=== PATIENT | female | born 1945 | race Caucasian/White ===

== ENCOUNTER 2016-06-11 16:50 | Emergency (ER) | payer MEDICARE, MEDICAID ==
[2016-06-11] MEDS ORDERED: cloNIDine 0.1 MG Tab PO ONE (17:14)
[2016-06-11 17:35] LABS: CHLORIDE,CL 95 mmol/L (98-107); SODIUM,NA 130 mmol/L (136-145)
--- NOTE | 2016-06-11 18:03 | EDM.PDOC ---
ED HPI GENERAL MEDICAL PROBLEM - General Chief Complaint: General Stated Complaint: Blurred vision, Dizziness Time Seen by Provider: 06/11/16 17:09 Source of Information: Reports: Patient History Limitations: Reports: No limitations - History of Present Illness INITIAL COMMENTS - FREE TEXT/NARRATIVE: Has had symptoms off and on for several weeks. was recently admitted in [place] for same symptoms. Had complete work up there. Is scheduled to see specialist for her hyponatremia. No chest pain. No neuro changes. Symptoms are improved after arrival to ER Duration: Week(s): Location: Reports: generalized Associated Symptoms: Reports: loss of appetite, weakness - Related Data Allergies Allergy/AdvReac Type Severity Reaction Status Date / Time morphine Allergy Hives Verified 06/11/16 16:53 niacin Allergy Flushed Verified 06/11/16 16:53 Home Meds: Home Meds Aspirin 81 mg PO DAILY 05/13/16 [History] LORazepam 0.5 mg PO BID PRN 05/13/16 [History] Levothyroxine 150 mcg PO ACBREAKFAST 05/13/16 [History] Losartan [Cozaar] 50 mg PO DAILY 05/13/16 [History] Meclizine [Antivert] 25 mg PO TID PRN 05/13/16 [History] Metoprolol Succinate 25 mg PO DAILY 05/13/16 [History] Phenytoin 100 mg PO TID 05/13/16 [History] Ranitidine [Zantac] 150 mg PO BIDAC 05/13/16 [History] amLODIPine Besylate [Amlodipine Besylate] 5 mg PO DAILY 05/13/16 [History] atorvaSTATin [Lipitor] 40 mg PO BEDTIME 05/13/16 [History] metFORMIN HCl [Metformin HCl ER] 500 mg PO QPM 05/13/16 [History] Albuterol [Proventil HFA] 1 - 2 inhalation PO Q4H PRN 05/23/16 [History] Vitamin B Complex 1 tab PO DAILY 05/23/16 [History] Calcium Carbonate/Vitamin D3 [Os-[place] 500-Vit D3 600 Caplet] 1 tab PO BID [History] Sodium Chloride 1 gm PO QID 06/05/16 [History] Past Medical History HEENT History: Reports: Cataract, Impaired vision Cardiovascular History: Reports: Afib, High cholesterol, Hypertension, Other ( see below) Other Cardiovascular History: Bundle Branch Block Respiratory History: Reports: None Gastrointestinal History: Reports: Diverticulosis, GERD Genitourinary History: Reports: None [employer] History: Reports: Musculoskeletal History: Reports: Arthritis, Back pain, chronic, Osteoporosis Neurological History: Reports: Seizure Psychiatric History: Reports: Anxiety Endocrine/Metabolic History: Reports: Diabetes, type II, Hypothyroidism, Obesity /BMI 30+, Osteoporosis, Vitamin D deficiency Dermatologic History: Reports: None - Infectious Disease History Infectious Disease History: Reports: Chicken pox, Measles, Mumps - Past Surgical History Head Surgeries/Procedures: Reports: None HEENT Surgical History: Reports: Cataract surgery Cardiovascular Surgical History: Reports: None GI Surgical History: Reports: Cholecystectomy, Other (see below) Other GI Surgeries/Procedures: rectoceal/cystoceal repair Female Surgical History: Reports: Other (see below) Other Female Surgeries/Procedures: Pre-cancerous lumpectomy right breast. Endocrine Surgical History: Reports: None Neurological Surgical History: Reports: None Musculoskeletal Surgical History: Reports: None Dermatological Surgical History: Reports: None Social & Family History - Family History Family Medical History: Noncontributory Cardiac: Reports: Heart failure, [place] Endocrine/Metabolic: Reports: Diabetes, type II - Tobacco Use Smoking Status *Q: Former Smoker Years of Tobacco use: 50 Packs/Tins Daily: 1 Used Tobacco, but Quit: Yes Month Tobacco Last Used: 1 Second Hand Smoke Exposure: No - Caffeine Use Caffeine Use: Reports: Coffee - Recreational Drug Use Recreational Drug Use: No ED ROS GENERAL - Review of Systems Review Of Systems: See Below Constitutional: Reports: weakness, fatigue ED EXAM, GENERAL - Physical Exam Exam: See Below Exam Limited By: No limitations General Appearance: alert, no apparent distress Ears: normal external exam Nose: normal inspection Throat/Mouth: Normal inspection Head: atraumatic Neck: supple Respiratory/Chest: lungs clear, normal breath sounds Cardiovascular: regular rate, rhythm Back Exam: normal inspection Extremities: normal inspection Neurological: alert, oriented, normal cognition, normal gait, no motor/sensory deficits Psychiatric: normal affect, normal mood Course - Vital Signs Last Recorded V/S: Last Vital Signs Temp 36.2 C 06/11/16 16:54 Pulse 64 06/11/16 16:54 Resp 20 06/11/16 16:54 BP 165/70 H 06/11/16 17:17 Pulse Ox 99 06/11/16 16:54 - Orders/Labs/Meds Orders: Active Orders 24 hr Category Date Time Status EKG Documentation Completion [RC] ASDIRECTED Care 06/11/16 17:14 Active Labs: Laboratory Tests 06/11/16 06/11/16 Range/Units 17:15 17:15 WBC 8.4 (4.0-10.2) K/uL RBC 4.19 (3.77-5.09) M/uL Hgb 13.1 (11.7-15.5) g/dL Hct 37.4 (34.0-46.0) % MCV 89.3 (84.0-98.0) fL MCH 31.3 (28.2-33.3) pg MCHC 35.0 (31.7-36.0) g/dL RDW 12.9 (11.2-14.1) % Plt Count 205 (150-350) K/uL Neut % (Auto) 60.9 (45.0-80.0) % Lymph % (Auto) 26.4 (10.0-50.0) % Titus % (Auto) 11.0 (2.0-14.0) % Eos % (Auto) 1.3 (0.0-5.0) % Baso % (Auto) 0.4 (0.0-2.0) % Neut # (Auto) 5.09 (1.40-7.00) K/uL Lymph # (Auto) 2.21 (0.50-3.50) K/uL Titus # (Auto) 0.92 (0.00-1.00) K/uL Eos # (Auto) 0.11 (0.00-0.50) K/uL Baso # (Auto) 0.03 (0.00-0.20) K/uL Sodium 130 L (136-145) mmol/L Potassium 4.2 (3.5-5.1) mmol/L Chloride 95 L (98-107) mmol/L Carbon Dioxide 27.6 (21.0-32.0) mmol/L BUN 7 (7-18) mg/dL Creatinine 0.70 (0.51-1.17) mg/dL Est Cr Clr Drug Dosing 60.09 mL/min Estimated GFR (MDRD) > 60 mL/min Glucose 130 H (74-106) mg/dL Calcium 8.8 (8.5-10.1) mg/dL Total Bilirubin 0.4 (0.2-1.0) mg/dL AST 28 (15-37) U/L ALT 56 (12-78) U/L Alkaline Phosphatase 97 (46-116) IU/L Total Protein 7.2 (6.4-8.2) g/dL Albumin 3.6 (3.4-5.0) g/dL Meds: Medications Discontinued Medications Generic Name Dose Route Start Last Admin Trade Name Freq PRN Reason Stop Dose Admin Clonidine HCl 0.1 mg 06/11/16 17:14 06/11/16 17:17 Catapres PO 06/11/16 17:15 0.1 mg ONETIME ONE Administration - Re-Assessments/Exams Free Text/Narrative Re-Assessment/Exam: 06/11/16 18:02 Pt stable in ER BP improved with clonidine Departure - Departure Time of Disposition: 18:00 Disposition: Home, Self-Care 01 Condition: good Clinical Impression: Hyponatremia Forms: ED Department Discharge - My Orders Last 24 Hours: My Active Orders 06/11/16 17:14 EKG Documentation Completion [RC] ASDIRECTED - Assessment/Plan Last 24 Hours: My Active Orders 06/11/16 17:14 EKG Documentation Completion [RC] ASDIRECTED
[2016-06-11 18:31] VITALS: BP 154/60
== END 2016-06-11 18:15 | disposition home or self-care (01) ==
LOC: LL.ED 16:50
DX: E87.1 Hypo-osmolality and hyponatremia (principal); I48.91 Unspecified atrial fibrillation; E78.00 Pure hypercholesterolemia, unspecified; I10 Essential (primary) hypertension; K21.9 Gastro-esophageal reflux disease without esophagitis; Z87.891 Personal history of nicotine dependence; F41.9 Anxiety disorder, unspecified; E11.9 Type 2 diabetes mellitus without complications; E03.9 Hypothyroidism, unspecified; Z88.5 Allergy status to narcotic agent; Z88.8 Allergy status to other drugs, medicaments and biological substances; Z79.82 Long term (current) use of aspirin; Z79.899 Other long term (current) drug therapy
CPT/HCPCS: 36415; 80053; 85025; 93005; 99283; 99284; A9270

== ENCOUNTER 2017-07-11 19:30 | Emergency (ER) | payer MEDICARE, MEDICAID ==
[2017-07-11] MEDS ORDERED: Famotidine 20 MG/2 ML SDV IVPUSH ONE (19:39)
[2017-07-11] MEDS ORDERED: Pantoprazole 40 MG Vial IVPUSH ONE (19:39)
[2017-07-11] MEDS ORDERED: Sodium Chloride 0.9% 10 ML Syringe FLUSH PRN (19:39)
--- NOTE | 2017-07-11 19:39 | EDM.PDOC ---
ED HPI GENERAL MEDICAL PROBLEM - General Chief Complaint: General Stated Complaint: abdominal pain x 2 days Time Seen by Provider: 07/11/17 19:30 Source of Information: Reports: Patient, Old Records ([facility] chart/EMR) History Limitations: Reports: No Limitations - History of Present Illness INITIAL COMMENTS - FREE TEXT/NARRATIVE: Patient was brought to the emergency room via private automobile by her son for evaluation of occasional intermittent nonspecific diffuse abdominal cramping, which has been present for the last few days, with large normal bowel movement this morning, however only a small bowel movement about one hour prior to arrival. She also some problems with some nonspecific persistent intermittent vertigo and generalized weakness during the last few days, which is chronic in nature. No recent history of heartburn, nausea, diarrhea, melena, gross hematochezia, or any food intolerance, including fatty foods, etc.. She denies any gross hematuria, colic, or other UTI symptoms. The patient denies any chest pain/pressure, heart flutter, orthostasis, orthopnea, diaphoresis, paresthesias , recent decreased exercise tolerance, or any other anginal-type symptoms. The patient also denies any recent fever, cough, wheezing, dyspnea, etc.. No history of recent headaches, visual changes, diplopia, change in mental status, or other change in neurological status. Onset: Gradual Duration: Week(s): (About one week), Intermittent Location: Reports: Abdomen. Denies: Head, Face, Neck, Chest, Back, Upper Extremity, Left, Upper Extremity, Right, Generalized, Radiates to Quality: Reports: Ache, Same as Previous Episode, Other (Cramping) Severity: Moderate Improves with: Reports: None Worsens with: Reports: None Context: Reports: Other (As above) Associated Symptoms: Reports: Weakness (Stable chronic). Denies: Chest Pain, Cough, Diaphoresis, Fever/Chills, Headaches, Loss of Appetite, Malaise, Nausea/ Vomiting, Rash, Shortness of Breath, Syncope Treatments ENGINEERING TECHNICIAN: Reports: Other (see below) (None) Abdominal Pain Score (Numeric/FACES): 7 - Related Data Allergies Allergy/AdvReac Type Severity Reaction Status Date / Time morphine Allergy Hives Verified 07/11/17 19:31 niacin Allergy Flushed Verified 07/11/17 19:31 Home Meds: Home Meds Aspirin 81 mg PO DAILY 05/13/16 [History] LORazepam 0.5 mg PO BID PRN 05/13/16 [History] Levothyroxine 150 mcg PO ACBREAKFAST 05/13/16 [History] Meclizine [Antivert] 25 mg PO TID PRN 05/13/16 [History] Metoprolol Succinate 25 mg PO DAILY 05/13/16 [History] Phenytoin 100 mg PO TID 05/13/16 [History] Ranitidine [Zantac] 150 mg PO BIDAC 05/13/16 [History] amLODIPine Besylate [Amlodipine Besylate] 5 mg PO DAILY 05/13/16 [History] atorvaSTATin [Lipitor] 40 mg PO BEDTIME 05/13/16 [History] metFORMIN HCl [Metformin HCl ER] 500 mg PO QPM 05/13/16 [History] Vitamin B Complex 1 tab PO DAILY 05/23/16 [History] Sodium Chloride 1 gm PO QID 06/05/16 [History] Past Medical History HEENT History: Reports: Cataract, Impaired Vision, Other (See Below) Other HEENT History: Patient wears glasses Cardiovascular History: Reports: Afib, Arrhythmia, Cardiomyopathy, Heart Failure , High Cholesterol, Hypertension, Other (See Below) Other Cardiovascular History: Left bundle branch block/bifascicular bundle- branch block Respiratory History: Reports: Other (See Below) Other Respiratory History: Benign pulmonary nodule Gastrointestinal History: Reports: Diverticulosis, GERD Genitourinary History: Reports: None PLUMBER'S ASSISTANT History: Reports: Musculoskeletal History: Reports: Arthritis, Back Pain, Chronic, Neck Pain, Chronic, Osteoporosis Neurological History: Reports: Seizure, Vertigo, Other (See Below) Other Neuro History: Chronic vertigo Psychiatric History: Reports: Anxiety, Depression Endocrine/Metabolic History: Reports: Diabetes, Type II, Hypothyroidism, Obesity /BMI 30+, Osteoporosis, Vitamin D Deficiency, Other (See Below) Other Endocrine/Metabolic History: Chronic hyponatremia secondary to CHF Dermatologic History: Reports: None - Infectious Disease History Infectious Disease History: Reports: Chicken Pox, Measles, Mumps - Past Surgical History HEENT Surgical History: Reports: Cataract Surgery GI Surgical History: Reports: Cholecystectomy Female Surgical History: Reports: Other (See Below) Other Female Surgeries/Procedures: A&P repair Oncologic Surgical History: Reports: Lumpectomy, Other (See Below) Other Oncologic Surgeries/Procedures: Right Breast lumpectomy secondary to precancerous lesion - Past Imaging History Past Imaging History: Reports: CAT Scan (CT of the head on 06/05/16) Social & Family History - Family History Cardiac: Reports: CAD, Heart Failure, CO, Other (See Below) Other Cardiac Family History: Father with CHF and CO Respiratory: Reports: COPD, Other (See Below) Other Respiratory Family Hisory: Father with COPD Endocrine/Metabolic: Reports: Diabetes, type II, Other (See Below) Other Endocrine/Metabolic Family History: Mother, maternal aunt, and sister with diabetes mellitus. Oncologic: Reports: Skin Other Oncologic Family History: Maternal aunt with unknown type of skin cancer. - Tobacco Use Smoking Status *Q: Never Smoker Tobacco Use Within Last Twelve Months: No Used Tobacco, but Quit: No Smoking Cessation Information Provided To Patient: No - Caffeine Use Caffeine Use: Reports: Coffee ED ROS GENERAL - Review of Systems Review Of Systems: ROS reveals no pertinent complaints other than HPI. ED EXAM, GENERAL - Physical Exam Exam: See Below Exam Limited By: No Limitations General Appearance: Alert, WD/WN, No Apparent Distress, Anxious (Mild) Eye Exam: Bilateral Eye: EOMI, Normal Inspection (Patient wearing glasses, no nystagmus), PERRL Ears: Normal External Exam, Normal Canal, Hearing Grossly Normal, Normal TMs Nose: Normal Inspection, Normal Mucosa, No Blood Throat/Mouth: Normal Inspection, Normal Lips, Normal Teeth (Multiple missing teeth), Normal Gums, Normal Oropharynx, Normal Voice, No Airway Compromise. No : Dysphagia, Perioral Cyanosis Head: Atraumatic, Normocephalic. No: Facial Swelling, Sinus Tenderness Neck: Supple, Non-Tender, Full Range of Motion, Carotid Bruit (Bilateral carotid bruitsmild). No: Lymphadenopathy (L), Lymphadenopathy (R), Thyromegaly Respiratory/Chest: No Respiratory Distress, No Accessory Muscle Use, Rales ( Mild bilateral basilar rales). No: Rhonchi, Wheezing, Pleural Rub, Retractions Cardiovascular: Normal Peripheral Pulses, Regular Rate, Rhythm, No Edema, No Gallop, No JVD, No Murmur, No Rub. No: Gallop/S3, Gallop/S4, Friction Rub Peripheral Pulses: 2+: Radial (L), Radial (R) GI/Abdominal: Normal Bowel Sounds, Soft, Non-Tender, No Organomegaly, No Distention, No Abnormal Bruit, No Mass, Pelvis Stable, Other (Obese). No: Guarding (Female) Exam: Deferred Rectal (Female) Exam: Deferred Back Exam: Normal Inspection, Full Range of Motion. No: CVA Tenderness (L), CVA Tenderness (R), Muscle Spasm Extremities: Normal Inspection, Normal Range of Motion, Non-Tender, No Pedal Edema, Normal Capillary Refill. No: Britton's Sign Neurological: Alert, Oriented, CN II-XII Intact, Normal Cognition, Normal Gait, No Motor/Sensory Deficits Psychiatric: Normal Affect, Normal Mood Skin Exam: Warm, Dry, Intact, Normal Color, No Rash. No: Diaphoretic, Ecchymosis, Wound/Incision Lymphatic: No Adenopathy Course - Vital Signs Last Recorded V/S: Last Vital Signs Temp 36.6 C 07/11/17 19:45 Pulse 65 07/11/17 21:00 Resp 14 07/11/17 21:00 BP 168/56 H 07/11/17 21:00 Pulse Ox 95 07/11/17 21:00 Vital Signs - 24 hr 07/11/17 07/11/17 07/11/17 19:45 20:00 20:30 Temperature [ 36.6 C Oral] Pulse, 65 64 65 Peripheral [ Pulse Oximetry] Respiratory 14 16 16 Rate Blood Pressure 171/76 H 166/68 H 157/56 H [Left Upper Arm ] O2 Sat by Pulse 95 94 L 95 Oximetry 07/11/17 21:00 Temperature [ Oral] Pulse, 65 Peripheral [ Pulse Oximetry] Respiratory 14 Rate Blood Pressure 168/56 H [Left Upper Arm ] O2 Sat by Pulse 95 Oximetry - Orders/Labs/Meds Orders: Active Orders 24 hr Category Date Time Status Peripheral IV Care [RC] . DIRECTED Care 07/11/17 19:39 Active Nothing Per Oral Diet [DIET] Diet 07/11/17 Breakfast Active Abdomen Series w Chest 1V [CR] Stat Exams 07/11/17 19:39 Taken CULTURE URINE [RM] Stat Lab 07/11/17 20:00 Received UA W/MICROSCOPIC [URIN] Stat Lab 07/11/17 20:00 Ordered Sodium Chloride 0.9% [Saline Flush] Med 07/11/17 19:39 Active 10 ml FLUSH ASDIRECTED PRN Obtain Past Medical Record [OM.PC] Urgent Oth 07/11/17 19:39 Active Peripheral IV Insertion Adult [OM.PC] Stat Oth 07/11/17 19:39 Ordered Resuscitation Status Stat Resus Stat 07/11/17 19:39 Ordered Medication Orders Sodium Chloride (Saline Flush) 10 ml FLUSH ASDIRECTED PRN PRN Reason: Keep Vein Open Last Admin: 07/11/17 20:17 Dose: 10 ml Labs: Laboratory Tests 07/11/17 07/11/17 07/11/17 Range/Units 19:42 19:42 19:42 WBC 9.7 (4.0-10.2) K/uL RBC 4.37 (3.77-5.09) M/uL Hgb 14.0 (11.7-15.5) g/dL Hct 39.3 (34.0-46.0) % MCV 89.9 (84.0-98.0) fL MCH 32.0 (28.2-33.3) pg MCHC 35.6 (31.7-36.0) g/dL RDW 12.3 (11.2-14.1) % Plt Count 197 (150-350) K/uL Neut % (Auto) 61.8 (45.0-80.0) % Lymph % (Auto) 26.4 (10.0-50.0) % Bill[place] % (Auto) 9.8 (2.0-14.0) % Eos % (Auto) 1.5 (0.0-5.0) % Baso % (Auto) 0.5 (0.0-2.0) % Neut # (Auto) 5.99 (1.40-7.00) K/uL Lymph # (Auto) 2.56 (0.50-3.50) K/uL Bill[place] # (Auto) 0.95 (0.00-1.00) K/uL Eos # (Auto) 0.15 (0.00-0.50) K/uL Baso # (Auto) 0.05 (0.00-0.20) K/uL PT 10.1 (9.8-11.7) SEC INR 0.9 APTT 22.6 (22.1-29.8) SEC Sodium (136-145) mmol/L Potassium (3.5-5.1) mmol/L Chloride (98-107) mmol/L Carbon Dioxide (21.0-32.0) mmol/L BUN (7-18) mg/dL Creatinine (0.51-1.17) mg/dL Est Cr Clr Drug Dosing mL/min Estimated GFR (MDRD) mL/min Glucose (74-106) mg/dL Lactic Acid (0.4-2.0) mmol/L Uric Acid (2.6-7.2) mg/dL Calcium (8.5-10.1) mg/dL Magnesium (1.8-2.4) mg/dL Total Bilirubin (0.2-1.0) mg/dL AST (15-37) U/L ALT (12-78) U/L Alkaline Phosphatase (46-116) IU/L Total Protein (6.4-8.2) g/dL Albumin (3.4-5.0) g/dL Amylase 89 (25-115) U/L Lipase (73-393) U/L Specimen Type Urine Color Urine Appearance Urine pH (5.0-9.0) Ur Specific [place] (1.005-1.030) Urine Protein (NEGATIVE) mg/dL Urine Glucose (UA) (NEGATIVE) mg/dL Urine Ketones (NEGATIVE) mg/dL Urine Occult Blood (NEGATIVE) Urine Nitrite (NEGATIVE) Urine Bilirubin (NEGATIVE) Urine Urobilinogen (0.2-1.0) E.U./dL Ur Leukocyte Esterase (NEGATIVE) Urine RBC /HPF Urine WBC /HPF Ur Epithelial Cells /LPF Urine Bacteria (NONE TO FEW) /HPF 07/11/17 07/11/17 07/11/17 Range/Units 19:42 19:42 20:00 WBC (4.0-10.2) K/uL RBC (3.77-5.09) M/uL Hgb (11.7-15.5) g/dL Hct (34.0-46.0) % MCV (84.0-98.0) fL MCH (28.2-33.3) pg MCHC (31.7-36.0) g/dL RDW (11.2-14.1) % Plt Count (150-350) K/uL Neut % (Auto) (45.0-80.0) % Lymph % (Auto) (10.0-50.0) % Bill[place] % (Auto) (2.0-14.0) % Eos % (Auto) (0.0-5.0) % Baso % (Auto) (0.0-2.0) % Neut # (Auto) (1.40-7.00) K/uL Lymph # (Auto) (0.50-3.50) K/uL Billings # (Auto) (0.00-1.00) K/uL Eos # (Auto) (0.00-0.50) K/uL Baso # (Auto) (0.00-0.20) K/uL PT (9.8-11.7) SEC INR APTT (22.1-29.8) SEC Sodium 128 L (136-145) mmol/L Potassium 3.9 (3.5-5.1) mmol/L Chloride 94 L (98-107) mmol/L Carbon Dioxide 26.8 (21.0-32.0) mmol/L BUN 15 (7-18) mg/dL Creatinine 0.89 (0.51-1.17) mg/dL Est Cr Clr Drug Dosing 44.52 mL/min Estimated GFR (MDRD) > 60 mL/min Glucose 123 H (74-106) mg/dL Lactic Acid 1.0 (0.4-2.0) mmol/L Uric Acid 2.7 (2.6-7.2) mg/dL Calcium 9.2 (8.5-10.1) mg/dL Magnesium 2.0 (1.8-2.4) mg/dL Total Bilirubin 0.2 (0.2-1.0) mg/dL AST 27 (15-37) U/L ALT 53 (12-78) U/L Alkaline Phosphatase 132 H (46-116) IU/L Total Protein 8.0 (6.4-8.2) g/dL Albumin 3.8 (3.4-5.0) g/dL Amylase (25-115) U/L Lipase 148 (73-393) U/L Specimen Type Urinvoid Urine Color Light yellow Urine Appearance Clear Urine pH 7.0 (5.0-9.0) Ur Specific [place] 1.015 (1.005-1.030) Urine Protein Negative (NEGATIVE) mg/dL Urine Glucose (UA) Negative (NEGATIVE) mg/dL Urine Ketones Negative (NEGATIVE) mg/dL Urine Occult Blood Negative (NEGATIVE) Urine Nitrite Negative (NEGATIVE) Urine Bilirubin Negative (NEGATIVE) Urine Urobilinogen 0.2 (0.2-1.0) E.U./dL Ur Leukocyte Esterase Negative (NEGATIVE) Urine RBC Not seen /HPF Urine WBC 0-5 /HPF Ur Epithelial Cells Few /LPF Urine Bacteria Few (NONE TO FEW) /HPF Urine specimen set up for culture and sensitivity Meds: Medications Generic Name Dose Route Start Last Admin Trade Name Freq PRN Reason Stop Dose Admin Sodium Chloride 10 ml 07/11/17 19:39 07/11/17 20:17 Saline Flush FLUSH 10 ml ASDIRECTED PRN Administration Keep Vein Open Discontinued Medications Generic Name Dose Route Start Last Admin Trade Name Freq PRN Reason Stop Dose Admin Famotidine 40 mg 07/11/17 19:39 07/11/17 20:16 Pepcid IVPUSH 07/11/17 19:40 40 mg ONETIME ONE Administration Famotidine Confirm 07/11/17 20:16 07/11/17 20:24 Pepcid Administered 07/11/17 20:17 Not Given Dose 20 mg .ROUTE .STK-MED ONE Pantoprazole Sodium 40 mg 07/11/17 19:39 07/11/17 20:16 Protonix Iv IVPUSH 07/11/17 19:40 40 mg ONETIME ONE Administration - Radiology Interpretation Free Text/Narrative:: Acute abdominal x-rays shows evidence of moderate aortic valve calcification and COPD with status post cholecystectomy, moderate stool, and moderate osteoarthritic changes present. No free air, fluid levels, ileus, obstruction, pulmonary infiltrates, or CHF present Departure - Departure Time of Disposition: 21:55 Disposition: Home, Self-Care 01 Condition: Good Clinical Impression: CHF, Congestive heart failure, Hyponatremia, Vertigo, Peptic reflux disease, Hypothyroidism (acquired), Mixed anxiety depressive disorder, Abdominal pain Hypertension Qualifiers: Hypertension type: essential hypertension Qualified Code(s): I10 - Essential ( primary) hypertension Osteoarthritis Qualifiers: Osteoarthritis location: multiple joints Osteoarthritis type: primary Qualified Code(s): M15.0 - Primary generalized (osteo)arthritis Hyperlipidemia Qualifiers: Hyperlipidemia type: unspecified Qualified Code(s): E78.5 - Hyperlipidemia, unspecified Diabetes mellitus Qualifiers: Diabetes mellitus type: type 2 Diabetes mellitus terminal gauger supervisor insulin use: without jail use Diabetes mellitus complication status: without complication Qualified Code(s): E11.9 - Type 2 diabetes mellitus without complications - Discharge Information Instructions: Pantoprazole injection, Abdominal Pain, Adult, [id number], Famotidine injection Forms: ED Department Discharge Additional Instructions: 1. Follow up with your regular provider in 7-10 days for reevaluation, including repeat blood pressure check. 2. Tylenol 650 mg by mouth every 4 hours when necessary as directed. 3. [place] diet including encouragement of oral fluids in moderation such as sports drinks, etc. for 24-48 hours as directed. Advance to heart healthy, diverticulosis, diabetic diet as tolerated thereafter. Continue 1500 mL per day fluid restriction. 4. Immediately after this visit verify that your cellular telephone's voicemail has been activated and is empty. Also verify that your home telephone 's answering machine is operating properly and has space to receive messages. Note that it is sometimes necessary for us to be able to contact you at a later date to discuss your medical care. - Problem List & Annotations (1) Abdominal pain SNOMED Code(s): 95549927 Code(s): R10.9 - UNSPECIFIED ABDOMINAL PAIN Status: Acute Priority: High Onset Date: ~07/04/17 Annotation/Comment:: Nonspecific abdominal pain possibly secondary to intermittent constipation. Observe for now. [place] diet initially with continuation of previous diet before, including fluid restriction secondary to her CHF. Qualifiers: Abdominal location: generalized Qualified Code(s): R10.84 - Generalized abdominal pain (2) CHF, Congestive heart failure SNOMED Code(s): 26736249 Code(s): I50.9 - HEART FAILURE, UNSPECIFIED Status: Chronic Priority: Medium Annotation/Comment:: No chest pain or anginal type symptoms (3) Hyponatremia SNOMED Code(s): 09631758 Code(s): E87.1 - HYPO-OSMOLALITY AND HYPONATREMIA Status: Chronic Priority: Medium Annotation/Comment:: Stable chronic in nature secondary to her CHF as above (4) Weakness generalized SNOMED Code(s): 65043241 Code(s): R53.1 - WEAKNESS Status: Chronic Priority: Medium Annotation/ Comment:: Stable by today's exam continue to observe closely (5) Hypertension SNOMED Code(s): 45675708 Code(s): I10 - ESSENTIAL (PRIMARY) HYPERTENSION Status: Acute Priority: High Annotation/Comment:: Blood pressures under somewhat moderate control. Continue to observe closely by her regular provider Qualifiers: Hypertension type: essential hypertension Qualified Code(s): I10 - Essential (primary) hypertension (6) Osteoarthritis SNOMED Code(s): 165784699 Code(s): M19.90 - UNSPECIFIED OSTEOARTHRITIS, UNSPECIFIED SITE Status: Chronic Priority: Medium Annotation/Comment:: Stable by history Qualifiers: Osteoarthritis location: multiple joints Osteoarthritis type: primary Qualified Code(s): M15.0 - Primary generalized (osteo)arthritis (7) Vertigo SNOMED Code(s): 320505508 Code(s): R42 - DIZZINESS AND GIDDINESS Status: Chronic Priority: Medium Annotation/Comment:: Relatively stable by today's clinical exam although intermittent exacerbation during the last week as above. Continue to observe for now. Continue current medical therapy (8) Peptic reflux disease SNOMED Code(s): 181991913 Code(s): K21.9 - GASTRO-ESOPHAGEAL REFLUX DISEASE WITHOUT ESOPHAGITIS Status: Chronic Priority: Medium Annotation/Comment:: Stable by history with high-dose IV Protonix and IV Pepcid given in the emergency room. Continue to observe for now (9) Hypothyroidism (acquired) SNOMED Code(s): 189946567 Code(s): E03.9 - HYPOTHYROIDISM, UNSPECIFIED Status: Chronic Priority: Medium Annotation/Comment:: Currently under therapy (10) Diabetes mellitus SNOMED Code(s): 14571432 Code(s): E11.9 - TYPE 2 DIABETES MELLITUS WITHOUT COMPLICATIONS Status: Chronic Priority: Medium Annotation/Comment:: Stable by history Qualifiers: Diabetes mellitus type: type 2 Diabetes mellitus terminal gauger supervisor insulin use: without jail use Diabetes mellitus complication status: without complication Qualified Code(s): E11.9 - Type 2 diabetes mellitus without complications (11) Hyperlipidemia SNOMED Code(s): 85385254 Code(s): E78.5 - HYPERLIPIDEMIA, UNSPECIFIED Status: Chronic Priority: Medium Annotation/Comment:: Currently under therapy Qualifiers: Hyperlipidemia type: unspecified Qualified Code(s): E78.5 - Hyperlipidemia , unspecified (12) Mixed anxiety depressive disorder SNOMED Code(s): 863092921 Code(s): F41.8 - OTHER SPECIFIED ANXIETY DISORDERS Status: Chronic Priority: Medium Annotation/Comment:: Relatively stable today. Continue to observe closely. - Problem List Review Problem List Initiated/Reviewed/Updated: Yes - My Orders Last 24 Hours: My Active Orders 07/11/17 19:39 Peripheral IV Care [RC] . DIRECTED Abdomen Series w Chest 1V [CR] Stat Sodium Chloride 0.9% [Saline Flush] 10 ml FLUSH ASDIRECTED PRN Obtain Past Medical Record [OM.PC] Urgent Peripheral IV Insertion Adult [OM.PC] Stat Resuscitation Status Stat 07/11/17 20:00 CULTURE URINE [RM] Stat UA W/MICROSCOPIC [URIN] Stat 07/11/17 Breakfast Nothing Per Oral Diet [DIET] - Assessment/Plan Last 24 Hours: My Active Orders 07/11/17 19:39 Peripheral IV Care [RC] . DIRECTED Abdomen Series w Chest 1V [CR] Stat Sodium Chloride 0.9% [Saline Flush] 10 ml FLUSH ASDIRECTED PRN Obtain Past Medical Record [OM.PC] Urgent Peripheral IV Insertion Adult [OM.PC] Stat Resuscitation Status Stat 07/11/17 20:00 CULTURE URINE [RM] Stat UA W/MICROSCOPIC [URIN] Stat 07/11/17 Breakfast Nothing Per Oral Diet [DIET] Assessment:: As above Plan: As above. Extensive precautions were given to the patient, who is in agreement with the treatment plan. See Patient Instructions for further treatment and plan.
[2017-07-11 20:03] LABS: CHLORIDE,CL 94 mmol/L (98-107); SODIUM,NA 128 mmol/L (136-145)
[2017-07-11] MEDS ORDERED: Famotidine 20 MG/2 ML SDV ONE (20:16)
[2017-07-12 00:14] VITALS: BP 132/61
== END 2017-07-11 21:52 | disposition home or self-care (01) ==
LOC: LL.ED 19:30
DX: K21.9 Gastro-esophageal reflux disease without esophagitis (principal); I11.0 Hypertensive heart disease with heart failure; I50.9 Heart failure, unspecified; E11.9 Type 2 diabetes mellitus without complications; E66.9 Obesity, unspecified; E87.1 Hypo-osmolality and hyponatremia; E03.9 Hypothyroidism, unspecified; F41.8 Other specified anxiety disorders; M15.0 Primary generalized (osteo)arthritis; E78.5 Hyperlipidemia, unspecified; Z88.5 Allergy status to narcotic agent; Z79.82 Long term (current) use of aspirin; Z79.899 Other long term (current) drug therapy; Z79.84 Long term (current) use of oral hypoglycemic drugs
CPT/HCPCS: 36415; 74022; 80053; 81001; 82150; 83605; 83690; 83735; 84550; 85025; 85610; 85730; 87086; 96374; 96375; 99284; C9113; J7050; S0028

== ENCOUNTER 2019-03-24 08:46 | Emergency (ER) | payer MEDICARE, MEDICAID ==
[2019-03-24 09:26] VITALS: BP 134/58; PULSE 70
[2019-03-24 09:45] LABS: CHLORIDE,CL 91 mmol/L (98-107); SODIUM,NA 126 mmol/L (136-145)
[2019-03-24] MEDS ORDERED: Sodium Chloride 0.9% 1,000 ML IV ONE (09:57)
--- NOTE | 2019-03-24 10:22 | EDM.PDOC ---
ED HPI GENERAL MEDICAL PROBLEM - General Chief Complaint: General Stated Complaint: dizzy, nausea, leg cramps Time Seen by Provider: 03/24/19 09:18 Source of Information: Reports: Patient History Limitations: Reports: No Limitations - History of Present Illness INITIAL COMMENTS - FREE TEXT/NARRATIVE: Pt with hx/o hyponatremia and felt similar symptoms today [place] ok yesterday Noticed dizziness, muscles cramps and weakness. Pt on salt replacement and water restriction for hyponatremia Onset: Gradual Duration: Day(s): Location: Reports: Generalized Severity: Moderate Worsens with: Reports: Movement - Related Data Allergies Allergy/AdvReac Type Severity Reaction Status Date / Time morphine Allergy Hives Verified 07/11/17 19:31 niacin Allergy Flushed Verified 07/11/17 19:31 Home Meds: Home Meds Aspirin 81 mg PO DAILY 05/13/16 [History] LORazepam 0.5 mg PO BID PRN 05/13/16 [History] Levothyroxine 150 mcg PO ACBREAKFAST 05/13/16 [History] Meclizine [Antivert] 25 mg PO TID PRN 05/13/16 [History] Metoprolol Succinate 25 mg PO DAILY 05/13/16 [History] Phenytoin 100 mg PO TID 05/13/16 [History] amLODIPine Besylate [Amlodipine Besylate] 5 mg PO DAILY 05/13/16 [History] atorvaSTATin [Lipitor] 40 mg PO BEDTIME 05/13/16 [History] metFORMIN HCl [Metformin HCl ER] 500 mg PO QPM 05/13/16 [History] Vitamin B Complex 1 tab PO DAILY 05/23/16 [History] Sodium Chloride 1 gm PO QID 06/05/16 [History] Calcium Carbonate/Vitamin D3 [Calcium 500 + Vit D 400] 1 each PO DAILY 03/24/19 [History] Famotidine 20 mg PO BEDTIME 03/24/19 [History] Past Medical History HEENT History: Reports: Cataract, Impaired Vision, Other (See Below) Other HEENT History: Patient wears glasses Cardiovascular History: Reports: Afib, Arrhythmia, Cardiomyopathy, Heart Failure , High Cholesterol, Hypertension, Other (See Below) Other Cardiovascular History: Left bundle branch block/bifascicular bundle- branch block Respiratory History: Reports: Other (See Below) Other Respiratory History: Benign pulmonary nodule Gastrointestinal History: Reports: Diverticulosis, GERD Genitourinary History: Reports: None 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: Musculoskeletal History: Reports: Arthritis, Back Pain, Chronic, Neck Pain, Chronic, Osteoporosis Neurological History: Reports: Seizure, Vertigo, Other (See Below) Other Neuro History: Chronic vertigo Psychiatric History: Reports: Anxiety, Depression Endocrine/Metabolic History: Reports: Diabetes, Type II, Hypothyroidism, Obesity /BMI 30+, Osteoporosis, Vitamin D Deficiency, Other (See Below) Other Endocrine/Metabolic History: Chronic hyponatremia secondary to CHF Dermatologic History: Reports: None - Infectious Disease History Infectious Disease History: Reports: Chicken Pox, Measles, Mumps - Past Surgical History HEENT Surgical History: Reports: Cataract Surgery GI Surgical History: Reports: Cholecystectomy Female Surgical History: Reports: Other (See Below) Other Female Surgeries/Procedures: A&P repair Oncologic Surgical History: Reports: Lumpectomy, Other (See Below) Other Oncologic Surgeries/Procedures: Right Breast lumpectomy secondary to precancerous lesion - Past Imaging History Past Imaging History: Reports: CAT Scan (CT of the head on 06/05/16) Social & Family History - Family History Family Medical History: Noncontributory Cardiac: Reports: CAD, Heart Failure, ID, Other (See Below) Other Cardiac Family History: Father with CHF and ID Respiratory: Reports: COPD, Other (See Below) Other Respiratory Family Hisory: Father with COPD Endocrine/Metabolic: Reports: Diabetes, type II, Other (See Below) Other Endocrine/Metabolic Family History: Mother, maternal aunt, and sister with diabetes mellitus. Oncologic: Reports: Skin Other Oncologic Family History: Maternal aunt with unknown type of skin cancer. - Tobacco Use Smoking Status *Q: Former Smoker Used Tobacco, but Quit: Yes Month/Year Tobacco Last Used: 0 - Caffeine Use Caffeine Use: Reports: Coffee ED ROS GENERAL - Review of Systems Review Of Systems: See Below Constitutional: Reports: Weakness, Decreased Appetite HEENT: Reports: No Symptoms Respiratory: Reports: No Symptoms Cardiovascular: Reports: No Symptoms GI/Abdominal: Reports: No Symptoms Musculoskeletal: Reports: No Symptoms Neurological: Reports: Dizziness ED EXAM, GENERAL - Physical Exam Exam: See Below Exam Limited By: No Limitations General Appearance: Alert, No Apparent Distress Throat/Mouth: Normal Oropharynx Head: Atraumatic Neck: Supple Respiratory/Chest: Lungs Clear Cardiovascular: Regular Rate, Rhythm GI/Abdominal: Soft, Non-Tender Extremities: Pedal Edema Neurological: Alert, Oriented, No Motor/Sensory Deficits Course - Vital Signs Last Recorded V/S: Last Vital Signs Temp 98.6 F 03/24/19 08:50 Pulse 70 03/24/19 09:25 Resp 15 03/24/19 09:25 BP 134/58 L 03/24/19 09:25 Pulse Ox 96 03/24/19 09:25 - Orders/Labs/Meds Orders: Active Orders 24 hr Category Date Time Status Sodium Chloride 0.9% [Normal Saline] 1,000 ml Med 03/24/19 09:57 Active IV .BOLUS Medication Orders Sodium Chloride (Normal Saline) 1,000 mls @ 1,000 mls/hr IV .BOLUS ONE Stop: 03/24/19 10:56 Last Admin: 03/24/19 10:11 Dose: 1,000 mls/hr Labs: Laboratory Tests 03/24/19 03/24/19 Range/Units 09:24 09:24 WBC 7.8 (4.0-10.2) K/uL RBC 3.95 (3.77-5.09) M/uL Hgb 12.6 (11.7-15.5) g/dL Hct 36.0 (34.0-46.0) % MCV 91.1 (84.0-98.0) fL MCH 31.9 (28.2-33.3) pg MCHC 35.0 (31.7-36.0) g/dL RDW 12.1 (11.2-14.1) % Plt Count 151 (150-350) K/uL Neut % (Auto) 67.3 (45.0-80.0) % Lymph % (Auto) 18.0 (10.0-50.0) % Clarke % (Auto) 13.7 (2.0-14.0) % Eos % (Auto) 0.6 (0.0-5.0) % Baso % (Auto) 0.4 (0.0-2.0) % Neut # (Auto) 5.26 (1.40-7.00) K/uL Lymph # (Auto) 1.41 (0.50-3.50) K/uL Clarke # (Auto) 1.07 H (0.00-1.00) K/uL Eos # (Auto) 0.05 (0.00-0.50) K/uL Baso # (Auto) 0.03 (0.00-0.20) K/uL Sodium 126 L (136-145) mmol/L Potassium 4.0 (3.5-5.1) mmol/L Chloride 91 L (98-107) mmol/L Carbon Dioxide 25.4 (21.0-32.0) mmol/L BUN 8 (7-18) mg/dL Creatinine 0.82 (0.51-1.17) mg/dL Est Cr Clr Drug Dosing TNP Estimated GFR (MDRD) > 60 mL/min Glucose 165 H (74-106) mg/dL Calcium 8.5 (8.5-10.1) mg/dL Total Bilirubin 0.4 (0.2-1.0) mg/dL AST 23 (15-37) U/L ALT 42 (12-78) U/L Alkaline Phosphatase 99 (46-116) IU/L Total Protein 6.8 (6.4-8.2) g/dL Albumin 3.3 L (3.4-5.0) g/dL Meds: Medications Generic Name Dose Route Start Last Admin Trade Name Freq PRN Reason Stop Dose Admin Sodium Chloride 1,000 mls @ 1,000 mls/hr 03/24/19 09:57 03/24/19 10:11 Normal Saline IV 03/24/19 10:56 1,000 mls/hr .BOLUS ONE Administration - Re-Assessments/Exams Free Text/Narrative Re-Assessment/Exam: 03/24/19 10:21 Pt stable in ER See lab Pt given NS IVF in ER Departure - Departure Time of Disposition: 12:00 Disposition: Home, Self-Care 01 Clinical Impression: Hyponatremia - Discharge Information *PRESCRIPTION DRUG MONITORING PROGRAM REVIEWED*: Not Applicable *COPY OF PRESCRIPTION DRUG MONITORING REPORT IN PATIENT [place]: Not Applicable Instructions: Hyponatremia Referrals: Libby Mcleod PA-C [Primary Care Provider] - Additional Instructions: Continue usual medications and cares Follow up in clinic Sepsis Event Note - Evaluation Sepsis Screening Result: No Definite Risk - Focused Exam Vital Signs: Vital Signs Temp Pulse Resp BP Pulse Ox 03/24/19 09:25 70 15 134/58 L 96 03/24/19 08:50 98.6 F 68 16 144/54 H 95 Date Exam was Performed: 03/24/19 Time Exam was Performed: 10:18 - My Orders Last 24 Hours: My Active Orders 03/24/19 09:57 Sodium Chloride 0.9% [Normal Saline] 1,000 ml IV .BOLUS - Assessment/Plan Last 24 Hours: My Active Orders 03/24/19 09:57 Sodium Chloride 0.9% [Normal Saline] 1,000 ml IV .BOLUS
[2019-03-24] MEDS ORDERED: Sodium Chloride 0.9% 10 ML Syringe FLUSH PRN (10:26)
== END 2019-03-24 11:15 | disposition home or self-care (01) ==
LOC: LL.ED 08:46
DX: E87.1 Hypo-osmolality and hyponatremia (principal); I11.0 Hypertensive heart disease with heart failure; I50.9 Heart failure, unspecified; E11.9 Type 2 diabetes mellitus without complications; E78.00 Pure hypercholesterolemia, unspecified; I48.91 Unspecified atrial fibrillation; K21.9 Gastro-esophageal reflux disease without esophagitis; M19.90 Unspecified osteoarthritis, unspecified site; F41.9 Anxiety disorder, unspecified; F32.9 Major depressive disorder, single episode, unspecified; E03.9 Hypothyroidism, unspecified; E66.9 Obesity, unspecified; Z68.29 Body mass index [BMI] 29.0-29.9, adult; Z87.891 Personal history of nicotine dependence; Z88.5 Allergy status to narcotic agent; Z88.8 Allergy status to other drugs, medicaments and biological substances; Z79.82 Long term (current) use of aspirin; Z79.84 Long term (current) use of oral hypoglycemic drugs; Z79.899 Other long term (current) drug therapy
CPT/HCPCS: 36415; 80053; 85025; 96360; 99285; J7030; 99282

== ENCOUNTER 2019-03-28 17:00 | Emergency (ER) | payer MEDICARE, MEDICAID ==
[2019-03-28] MEDS ORDERED: Metoprolol Tartrate 5 MG/5 ML SDV IVPUSH ONE (17:04)
[2019-03-28 17:40] LABS: CHLORIDE,CL 94 mmol/L (98-107); SODIUM,NA 130 mmol/L (136-145)
[2019-03-28] MEDS: Sodium Chloride 0.9% 10 ML Syringe FLUSH PRN ×2 (17:58→19:03)
[2019-03-28] MEDS ORDERED: Metoprolol Tartrate 25 MG Tab PO ONE (19:37)
--- NOTE | 2019-03-28 19:43 | EDM.PDOC ---
ED HPI GENERAL MEDICAL PROBLEM - General Chief Complaint: General Stated Complaint: blurred vision, high blood pressure Time Seen by Provider: 03/28/19 17:04 Source of Information: Reports: Patient History Limitations: Reports: No Limitations - History of Present Illness INITIAL COMMENTS - FREE TEXT/NARRATIVE: Patient comes to ER with complaint of having elevated BP at home when she checked it around 4pm today. Patient decided to check it because of feeling light headed and had some vision change. She recalls that BP was around 200/80 at that time. No headache or neuro changes reported. She denies any OTC meds/supplements/recent med changes. Has had cough for the past week. Cough has been steadily improving. Denies fevers/chills. No SOB. No other health changes. Denies ear/throat pain No nasal congestion. No chest pain/new pain complaint. No nausea/emesis/bowel changes/abdominal pain. Denies UTI complaints/hematuria. Had similar episode "a long time ago" but that went away and has not recurred until today. No new stresses reported. BPs usually run in good range. - Related Data Allergies Allergy/AdvReac Type Severity Reaction Status Date / Time morphine Allergy Hives Verified 03/28/19 17:10 niacin Allergy Flushed Verified 03/28/19 17:10 Home Meds: Home Meds Aspirin 81 mg PO DAILY 05/13/16 [History] LORazepam 0.5 mg PO BID PRN 05/13/16 [History] Levothyroxine 150 mcg PO ACBREAKFAST 05/13/16 [History] Meclizine [Antivert] 25 mg PO TID PRN 05/13/16 [History] Metoprolol Succinate 25 mg PO DAILY 05/13/16 [History] Phenytoin 100 mg PO TID 05/13/16 [History] amLODIPine Besylate [Amlodipine Besylate] 5 mg PO DAILY 05/13/16 [History] atorvaSTATin [Lipitor] 40 mg PO BEDTIME 05/13/16 [History] metFORMIN HCl [Metformin HCl ER] 500 mg PO QPM 05/13/16 [History] Vitamin B Complex 1 tab PO DAILY 05/23/16 [History] Sodium Chloride 1 gm PO QID 06/05/16 [History] Calcium Carbonate/Vitamin D3 [Calcium 500 + Vit D 400] 1 each PO DAILY 03/24/19 [History] Famotidine 20 mg PO BEDTIME 03/24/19 [History] Past Medical History HEENT History: Reports: Cataract, Impaired Vision, Other (See Below) Other HEENT History: Patient wears glasses Cardiovascular History: Reports: Afib, Arrhythmia, Cardiomyopathy, Heart Failure , High Cholesterol, Hypertension, Other (See Below) Other Cardiovascular History: Left bundle branch block/bifascicular bundle- branch block Respiratory History: Reports: Other (See Below) Other Respiratory History: Benign pulmonary nodule Gastrointestinal History: Reports: Diverticulosis, GERD Genitourinary History: Reports: 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: Musculoskeletal History: Reports: Arthritis, Back Pain, Chronic, Neck Pain, Chronic, Osteoporosis Neurological History: Reports: Seizure, Vertigo, Other (See Below) Other Neuro History: Chronic vertigo Psychiatric History: Reports: Anxiety, Depression Endocrine/Metabolic History: Reports: Diabetes, Type II, Hypothyroidism, Obesity /BMI 30+, Osteoporosis, Vitamin D Deficiency, Other (See Below) Other Endocrine/Metabolic History: Chronic hyponatremia secondary to CHF Dermatologic History: Reports: None - Infectious Disease History Infectious Disease History: Reports: Chicken Pox, Measles, Mumps - Past Surgical History Head Surgeries/Procedures: Reports: None HEENT Surgical History: Reports: Cataract Surgery GI Surgical History: Reports: Cholecystectomy Female Surgical History: Reports: Other (See Below) Other Female Surgeries/Procedures: A&P repair Oncologic Surgical History: Reports: Lumpectomy, Other (See Below) Other Oncologic Surgeries/Procedures: Right Breast lumpectomy secondary to precancerous lesion - Past Imaging History Past Imaging History: Reports: CAT Scan (CT of the head on 06/05/16) Social & Family History - Family History Family Medical History: Noncontributory Cardiac: Reports: CAD, Heart Failure, DE, Other (See Below) Other Cardiac Family History: Father with CHF and DE Respiratory: Reports: COPD, Other (See Below) Other Respiratory Family Hisory: Father with COPD Endocrine/Metabolic: Reports: Diabetes, type II, Other (See Below) Other Endocrine/Metabolic Family History: Mother, maternal aunt, and sister with diabetes mellitus. Oncologic: Reports: Skin Other Oncologic Family History: Maternal aunt with unknown type of skin cancer. - Tobacco Use Smoking Status *Q: Never Smoker - Caffeine Use Caffeine Use: Reports: Coffee - Recreational Drug Use Recreational Drug Use: No Drug Use in Last 12 Months: No ED ROS GENERAL - Review of Systems Review Of Systems: Comprehensive ROS is negative, except as noted in HPI. ED EXAM, GENERAL - Physical Exam Exam: See Below Exam Limited By: No Limitations General Appearance: Alert, WD/WN, No Apparent Distress Eye Exam: Bilateral Eye: EOMI, PERRL Ears: Normal External Exam, Other (both canals have significant cerumen/TMs minimally visable but appear to be normal color) Nose: No: Nasal Deformity, Nasal Swelling, Nasal Drainage Throat/Mouth: Normal Lips, Normal Oropharynx, Normal Voice, No Airway Compromise Head: Atraumatic, Normocephalic Neck: Normal Inspection, Supple, Non-Tender, Full Range of Motion Respiratory/Chest: No Respiratory Distress, No Accessory Muscle Use, Rhonchi ( several scattered rhonchi noted on exam). No: Crackles, Rales, Wheezing, Stridor Cardiovascular: Normal Peripheral Pulses, Regular Rate, Rhythm, No Murmur Peripheral Pulses: 2+: Radial (R) GI/Abdominal: Normal Bowel Sounds, Soft, Non-Tender (Female) Exam: Deferred Rectal (Female) Exam: Deferred Back Exam: No: CVA Tenderness (L), CVA Tenderness (R), Muscle Spasm Extremities: Normal Capillary Refill Neurological: Alert, Oriented, Normal Cognition, Other (equal strength bilaterally) Psychiatric: Normal Affect, Normal Mood Skin Exam: Warm, Dry, Intact, Normal Color Course - Vital Signs Last Recorded V/S: Last Vital Signs Temp 36.2 C 03/28/19 17:22 Pulse 71 03/28/19 18:06 Resp 20 03/28/19 18:06 BP 137/65 03/28/19 18:06 Pulse Ox 97 03/28/19 18:06 - Orders/Labs/Meds Orders: Active Orders 24 hr Category Date Time Status Chest 2V [CR] Stat Exams 03/28/19 17:06 Taken UA W/MICROSCOPIC [URIN] Stat Lab 03/28/19 17:05 Ordered Magnesium Sulfate/D5W [Magnesium Sulfate in D5W 100 Med 03/28/19 18:50 Ordered Premix] 1 gm Premix Bag 1 bag IV ONETIME Sodium Chloride 0.9% [Saline Flush] Med 03/28/19 17:05 Active 10 ml FLUSH ASDIRECTED PRN Saline Lock Insert [OM.PC] Stat Oth 03/28/19 17:05 Ordered Medication Orders Magnesium Sulfate/Dextrose 1 (gm/ Premix) 100 mls @ 100 mls/hr IV ONETIME ONE Stop: 03/28/19 19:49 Last Admin: 03/28/19 19:01 Dose: 100 mls/hr Sodium Chloride (Saline Flush) 10 ml FLUSH ASDIRECTED PRN PRN Reason: Keep Vein Open Last Admin: 03/28/19 19:03 Dose: 10 ml Admin: 03/28/19 17:58 Dose: 10 ml Labs: Laboratory Tests 03/28/19 03/28/19 03/28/19 Range/Units 17:10 17:10 17:10 WBC 7.2 (4.0-10.2) K/uL RBC 4.07 (3.77-5.09) M/uL Hgb 12.8 (11.7-15.5) g/dL Hct 36.9 (34.0-46.0) % MCV 90.7 (84.0-98.0) fL MCH 31.4 (28.2-33.3) pg MCHC 34.7 (31.7-36.0) g/dL RDW 12.1 (11.2-14.1) % Plt Count 182 (150-350) K/uL Neut % (Auto) 53.5 (45.0-80.0) % Lymph % (Auto) 32.5 (10.0-50.0) % [place] % (Auto) 11.3 (2.0-14.0) % Eos % (Auto) 2.3 (0.0-5.0) % Baso % (Auto) 0.4 (0.0-2.0) % Neut # (Auto) 3.87 (1.40-7.00) K/uL Lymph # (Auto) 2.35 (0.50-3.50) K/uL [place] # (Auto) 0.82 (0.00-1.00) K/uL Eos # (Auto) 0.17 (0.00-0.50) K/uL Baso # (Auto) 0.03 (0.00-0.20) K/uL Sodium 130 L (136-145) mmol/L Potassium 4.2 (3.5-5.1) mmol/L Chloride 94 L (98-107) mmol/L Carbon Dioxide 27.1 (21.0-32.0) mmol/L BUN 11 (7-18) mg/dL Creatinine 0.68 (0.51-1.17) mg/dL Est Cr Clr Drug Dosing TNP Estimated GFR (MDRD) > 60 mL/min Glucose 140 H (74-106) mg/dL Lactic Acid 1.1 (0.4-2.0) mmol/L Calcium 8.8 (8.5-10.1) mg/dL Magnesium 1.7 L (1.8-2.4) mg/dL Total Bilirubin 0.2 (0.2-1.0) mg/dL AST 39 H (15-37) U/L ALT 56 (12-78) U/L Alkaline Phosphatase 100 (46-116) IU/L Total Protein 7.4 (6.4-8.2) g/dL Albumin 3.4 (3.4-5.0) g/dL TSH, Ultra Sensitive 1.220 (0.358-3.740) mIU/mL Meds: Medications Generic Name Dose Route Start Last Admin Trade Name Freq PRN Reason Stop Dose Admin Magnesium Sulfate/Dextrose 1 100 mls @ 100 mls/hr 03/28/19 18:50 03/28/19 19: 01 gm/ Premix IV 03/28/19 19:49 100 mls/hr ONETIME ONE Administration Sodium Chloride 10 ml 03/28/19 17:05 03/28/19 19:03 Saline Flush FLUSH 10 ml ASDIRECTED PRN Administration Keep Vein Open Discontinued Medications Generic Name Dose Route Start Last Admin Trade Name Freq PRN Reason Stop Dose Admin Metoprolol Tartrate 2.5 mg 03/28/19 17:04 03/28/19 17:57 Lopressor IVPUSH 03/28/19 17:05 2.5 mg ONETIME ONE Administration Metoprolol Tartrate 25 mg 03/28/19 19:37 Lopressor PO 03/28/19 19:38 ONETIME ONE - Radiology Interpretation Free Text/Narrative:: Chest xray, appears to have small left pleural effusion/pending formal Radiology review - Re-Assessments/Exams Free Text/Narrative Re-Assessment/Exam: Patient received Lopressor IV shortly after arrival and BP improved quickly. Lightheadedness and vision change also resolved. Patient observed while waiting for labs and xray and continued to do well. Some rhonchi noted on lung exam. Normal WBC. Normal lactic acid. Cough improving per patient/no fevers. Suspect viral respiratory tract infection/no antibiotics indicated at this time. Uncertain as to what triggered patient's increased BP today. She did admit that she usually does not check the BP often so it is uncertain what her recent trends have been. Plan tonight is to give IV Mg as she is low and low Mg can contribute to elevated BP. She also later stated that she was having issues with muscle cramps in her legs this past week which can also be due to Mag deficiency. 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 Patient has long history of chronic hyponatremia and is 130 today which is a relatively good number when comparing it to previous levels on record. She takes daily supplements for that and is on water restriction. Single extra PO dose of lopressor will be given. Precautions reviewed. Patient is requested to check her BP at home three times a day starting tomorrow and is to record the BPs/keep record. If they become elevated again tomorrow and she is symptomatic she is to return to the ER. Otherwise if she is doing well, she is to follow up this week or next with her primary provider and review the BPs/adjust meds as needed. Departure - Departure Time of Disposition: 20:00 Disposition: Home, Self-Care 01 Condition: Good Clinical Impression: Hypomagnesemia Hypertension Qualifiers: Hypertension type: essential hypertension Qualified Code(s): I10 - Essential ( primary) hypertension - Discharge Information *PRESCRIPTION DRUG MONITORING PROGRAM REVIEWED*: Not Applicable *COPY OF PRESCRIPTION DRUG MONITORING REPORT IN PATIENT [place]: Not Applicable Instructions: Hypomagnesemia Forms: ED Department Discharge Additional Instructions: Check your BPs three times a day and record them. Follow up and review these with your primary provider sometime in the next few weeks. If you see that they are really high again, especially if you re-develop the dizziness/visual changes, return to the ER. Start a Magnesium supplement daily! Get an appointment to get your ears irrigated. Sepsis Event Note - Evaluation Sepsis Screening Result: No Definite Risk - Focused Exam Vital Signs: Vital Signs Temp Pulse Pulse Resp BP BP Pulse Ox 03/28/19 18:06 71 20 137/65 97 03/28/19 18:00 71 18 141/70 H 96 03/28/19 17:57 74 153/65 H 03/28/19 17:36 73 18 157/61 H 95 03/28/19 17:22 36.2 C 74 20 182/68 H 94 L 03/28/19 17:06 36.5 C 75 20 151/70 H 95 03/28/19 17:00 36.5 C 79 20 206/89 H 95 Date Exam was Performed: 03/28/19 Time Exam was Performed: 19:45 - My Orders Last 24 Hours: My Active Orders 03/28/19 17:05 UA W/MICROSCOPIC [URIN] Stat Sodium Chloride 0.9% [Saline Flush] 10 ml FLUSH ASDIRECTED PRN Saline Lock Insert [OM.PC] Stat 03/28/19 17:06 Chest 2V [CR] Stat 03/28/19 18:50 Magnesium Sulfate/D5W [Magnesium Sulfate in D5W 100 Premix] 1 gm Premix Bag 1 bag IV ONETIME - Assessment/Plan Last 24 Hours: My Active Orders 03/28/19 17:05 UA W/MICROSCOPIC [URIN] Stat Sodium Chloride 0.9% [Saline Flush] 10 ml FLUSH ASDIRECTED PRN Saline Lock Insert [OM.PC] Stat 03/28/19 17:06 Chest 2V [CR] Stat 03/28/19 18:50 Magnesium Sulfate/D5W [Magnesium Sulfate in D5W 100 Premix] 1 gm Premix Bag 1 bag IV ONETIME
[2019-03-28 19:51] VITALS: BP 145/58; PULSE 66
== END 2019-03-28 20:10 | disposition home or self-care (01) ==
LOC: LL.ED 17:00
DX: I11.0 Hypertensive heart disease with heart failure (principal); I50.9 Heart failure, unspecified; E83.42 Hypomagnesemia; I48.91 Unspecified atrial fibrillation; E78.00 Pure hypercholesterolemia, unspecified; E11.36 Type 2 diabetes mellitus with diabetic cataract; H26.9 Unspecified cataract; E03.9 Hypothyroidism, unspecified; F41.9 Anxiety disorder, unspecified; R56.9 Unspecified convulsions; K21.9 Gastro-esophageal reflux disease without esophagitis; E66.9 Obesity, unspecified; Z88.5 Allergy status to narcotic agent; Z88.8 Allergy status to other drugs, medicaments and biological substances; Z79.82 Long term (current) use of aspirin; Z79.899 Other long term (current) drug therapy; Z79.84 Long term (current) use of oral hypoglycemic drugs; Z79.890 Hormone replacement therapy
CPT/HCPCS: 36415; 71046; 80053; 83605; 83735; 84443; 85025; 96365; 96375; 99284; A9270; J3475; J3490

== ENCOUNTER 2020-05-15 14:05 | Observation (INO) | payer MEDICARE, MEDICAID ==
[2020-05-15 15:09] LABS: CHLORIDE,CL 91 mmol/L (98-107)
[2020-05-15 15:14] LABS: SODIUM,NA 126 mmol/L (136-145)
--- NOTE | 2020-05-15 16:11 | EDM.PDOC ---
ED HPI GENERAL MEDICAL PROBLEM - General Chief Complaint: General Stated Complaint: VALDEZ/CHILLS/ACHINESS Time Seen by Provider: 05/15/20 14:40 Source of Information: Reports: Patient History Limitations: Reports: No Limitations - History of Present Illness INITIAL COMMENTS - FREE TEXT/NARRATIVE: Patient comes in concerned that she has several episodes of increased shakiness today. [facility] chilled/warm at same time. Does have baseline chronic tremor. Reports some sinus congestion over last few days that she felt was due to allergies. Today is a bit achy, mild nausea, and has had several loose stools. Headache. Mild cough. No fevers. No SOB/UTI complaints. Decreased appetite. Has has both Covid vaccinations this spring. Generalized Pain Score (Numeric/FACES): 8 - Related Data Allergies Allergy/AdvReac Type Severity Reaction Status Date / Time morphine Allergy Hives Verified 05/15/20 15:03 niacin Allergy Flushed Verified 05/15/20 15:03 Home Meds: Home Meds Aspirin 81 mg PO DAILY 05/13/16 [History] LORazepam 0.5 mg PO BID@08,16 05/13/16 [History] Levothyroxine 150 mcg PO ACBREAKFAST 05/13/16 [History] Meclizine [Antivert] 25 mg PO TID@08,14,05/13/16 [History] Metoprolol Succinate 25 mg PO DAILY 05/13/16 [History] Phenytoin 100 mg PO TID 05/13/16 [History] amLODIPine Besylate [Amlodipine Besylate] 5 mg PO DAILY 05/13/16 [History] atorvaSTATin [Lipitor] 40 mg PO BEDTIME 05/13/16 [History] metFORMIN HCl [Metformin HCl ER] 500 mg PO QPM 05/13/16 [History] Vitamin B Complex 1 tab PO DAILY 05/23/16 [History] Sodium Chloride 1 gm PO QID 06/05/16 [History] Calcium Carbonate/Vitamin D3 [Calcium 500 + Vit D 400] 1 each PO DAILY 03/24/19 [History] Famotidine 20 mg PO BEDTIME 03/24/19 [History] Past Medical History HEENT History: Reports: Cataract, Impaired Vision, Other (See Below) Other HEENT History: Patient wears glasses Cardiovascular History: Reports: Afib, Arrhythmia, Cardiomyopathy, Heart Failure, High Cholesterol, Hypertension, Other (See Below) Other Cardiovascular History: Left bundle branch block/bifascicular bundle- branch block Respiratory History: Reports: Other (See Below) Other Respiratory History: Benign pulmonary nodule Gastrointestinal History: Reports: Diverticulosis, GERD Genitourinary History: Reports: None GUIDE SETTER History: Reports: Musculoskeletal History: Reports: Arthritis, Back Pain, Chronic, Neck Pain, Chronic, Osteoporosis Neurological History: Reports: Seizure, Vertigo, Other (See Below) Other Neuro History: Chronic vertigo Psychiatric History: Reports: Anxiety, Depression Endocrine/Metabolic History: Reports: Diabetes, Type II, Hypothyroidism, Obesity/BMI 30+, Osteoporosis, Vitamin D Deficiency, Other (See Below) Other Endocrine/Metabolic History: Chronic hyponatremia secondary to CHF Dermatologic History: Reports: None - Infectious Disease History Infectious Disease History: Reports: Chicken Pox, Measles, Mumps - Past Surgical History Head Surgeries/Procedures: Reports: None HEENT Surgical History: Reports: Cataract Surgery GI Surgical History: Reports: Cholecystectomy Female Surgical History: Reports: Other (See Below) Other Female Surgeries/Procedures: A&P repair Oncologic Surgical History: Reports: Lumpectomy, Other (See Below) Other Oncologic Surgeries/Procedures: Right Breast lumpectomy secondary to precancerous lesion - Past Imaging History Past Imaging History: Reports: CAT Scan (CT of the head on 06/05/16) Social & Family History - Family History Family Medical History: No Pertinent Family History Cardiac: Reports: CAD, Heart Failure, GA, Other (See Below) Other Cardiac Family History: Father with CHF and GA Respiratory: Reports: COPD, Other (See Below) Other Respiratory Family Hisory: Father with COPD Endocrine/Metabolic: Reports: Diabetes, type II, Other (See Below) Other Endocrine/Metabolic Family History: Mother, maternal aunt, and sister with diabetes mellitus. Oncologic: Reports: Skin Other Oncologic Family History: Maternal aunt with unknown type of skin cancer. - Tobacco Use Tobacco Use Status *Q: Former Tobacco User Used Tobacco, but Quit: Yes Month/Year Tobacco Last Used: 1 - Caffeine Use Caffeine Use: Reports: Coffee ED ROS GENERAL - Review of Systems Review Of Systems: See Below Constitutional: Reports: Chills, Fatigue, Decreased Appetite. Denies: Fever, Night Sweats, Diaphoresis HEENT: Reports: Sinus Problem, Vertigo (has chronic vertigo/dizziness. Takes Meclizine). Denies: Ear Pain, Throat Pain, Vision Change Respiratory: Reports: Cough. Denies: Shortness of Breath, Wheezing, Pleuritic Chest Pain, Sputum, Hemoptysis Cardiovascular: Denies: Chest Pain, Edema, Lightheadedness, Palpitations, Syncope GI/Abdominal: Reports: Diarrhea, Decreased Appetite, Nausea. Denies: Abdominal Pain, Constipation, Melena, Vomiting : Reports: No Symptoms Musculoskeletal: Reports: Other (generalized achiness) Skin: Reports: No Symptoms Neurological: Reports: Headache Psychiatric: Reports: No Symptoms ED EXAM, GENERAL - Physical Exam Exam: See Below Exam Limited By: No Limitations General Appearance: Alert, WD/WN, No Apparent Distress, Obese Eye Exam: Bilateral Eye: EOMI, PERRL Ears: Normal External Exam, Normal Canal, Hearing Grossly Normal, Normal TMs Nose: No: Nasal Deformity, Nasal Swelling, Nasal Drainage Throat/Mouth: Normal Lips, Normal Oropharynx, Normal Voice, No Airway Compromise Head: Atraumatic, Normocephalic Neck: Normal Inspection, Supple, Non-Tender, Full Range of Motion Respiratory/Chest: No Respiratory Distress, No Accessory Muscle Use, Chest Non- Tender, Rhonchi (single/right lung) Cardiovascular: No Edema, No Murmur, Irregularly Irregular GI/Abdominal: Soft, Non-Tender, Abnormal Bowel Sounds (diminished throughout), Other (rounded). No: Guarding, Rigid, Rebound, Tender (Female) Exam: Deferred Rectal (Female) Exam: Deferred Back Exam: No: CVA Tenderness (L), CVA Tenderness (R), Muscle Spasm, Paraspinal Tenderness, Vertebral Tenderness Extremities: Normal Range of Motion, Non-Tender, Normal Capillary Refill Neurological: Alert, Oriented, Normal Cognition, No Motor/Sensory Deficits Psychiatric: Normal Affect, Normal Mood Skin Exam: Warm, Dry, Intact, Normal Color Course - Vital Signs Last Recorded V/S: Last Vital Signs Temp 37.1 C 05/15/20 14:07 Pulse 67 05/15/20 14:07 Resp 18 05/15/20 14:07 BP 108/63 05/15/20 14:07 Pulse Ox 96 05/15/20 14:07 Orthostatic Blood Pressure [ 140/48 Standing] Orthostatic Blood Pressure [ 136/42 Sitting] Orthostatic Blood Pressure [ 120/43 Supine] - Orders/Labs/Meds Orders: Active Orders 24 hr Category Date Time Status CXR [Chest 2V] [CR] Stat Exams 05/15/20 14:24 Taken Isolation [COMM] Routine Oth 05/15/20 14:25 Active Isolation [COMM] Routine Oth 05/15/20 14:47 Active Labs: Laboratory Tests 05/15/20 05/15/20 05/15/20 Range/Units 14:30 14:35 14:48 WBC 15.6 H (4.0-10.2) K/uL RBC 4.03 (3.77-5.09) M/uL Hgb 13.0 (11.7-15.5) g/dL Hct 36.6 (34.0-46.0) % MCV 90.8 (84.0-98.0) fL MCH 32.3 (28.2-33.3) pg MCHC 35.5 (31.7-36.0) g/dL RDW 12.4 (11.2-14.1) % Plt Count 150 (150-350) K/uL Neut % (Auto) 89.0 H (45.0-80.0) % Lymph % (Auto) 7.0 L (10.0-50.0) % Banner % (Auto) 3.7 (2.0-14.0) % Eos % (Auto) 0.1 (0.0-5.0) % Baso % (Auto) 0.2 (0.0-2.0) % Neut # (Auto) 13.88 H (1.40-7.00) K/uL Lymph # (Auto) 1.09 (0.50-3.50) K/uL Banner # (Auto) 0.57 (0.00-1.00) K/uL Eos # (Auto) 0.01 (0.00-0.50) K/uL Baso # (Auto) 0.03 (0.00-0.20) K/uL Sodium (136-145) mmol/L Potassium (3.5-5.1) mmol/L Chloride (98-107) mmol/L Carbon Dioxide (21.0-32.0) mmol/L BUN (7-18) mg/dL Creatinine (0.51-1.17) mg/dL Est Cr Clr Drug Dosing mL/min Estimated GFR (MDRD) mL/min Glucose (70-99) mg/dL Lactic Acid (0.4-2.0) mmol/L Calcium (8.5-10.1) mg/dL Total Bilirubin (0.2-1.0) mg/dL AST (15-37) U/L ALT (12-78) U/L Alkaline Phosphatase (46-116) IU/L Total Protein (6.4-8.2) g/dL Albumin (3.4-5.0) g/dL Specimen Type Urinvoid Urine Color Yellow Urine Appearance Clear Urine pH 6.5 (5.0-9.0) Ur Specific [place] 1.025 (1.005-1.030) Urine Protein 100 H (NEGATIVE) mg/dL Urine Glucose (UA) Negative (NEGATIVE) mg/dL Urine Ketones Negative (NEGATIVE) mg/dL Urine Occult Blood Small H (NEGATIVE) Urine Nitrite Negative (NEGATIVE) Urine Bilirubin Negative (NEGATIVE) Urine Urobilinogen 0.2 (0.2-1.0) E.U./dL Ur Leukocyte Esterase Negative (NEGATIVE) Urine RBC 5-10 H /HPF Urine WBC 5-10 H /HPF Ur Epithelial Cells Few /LPF Urine Bacteria Few (NONE TO FEW) /HPF SARS-CoV-2 RNA (RADHA) Negative (NEGATIVE) 05/15/20 05/15/20 Range/Units 14:48 14:48 WBC (4.0-10.2) K/uL RBC (3.77-5.09) M/uL Hgb (11.7-15.5) g/dL Hct (34.0-46.0) % MCV (84.0-98.0) fL MCH (28.2-33.3) pg MCHC (31.7-36.0) g/dL RDW (11.2-14.1) % Plt Count (150-350) K/uL Neut % (Auto) (45.0-80.0) % Lymph % (Auto) (10.0-50.0) % Banner % (Auto) (2.0-14.0) % Eos % (Auto) (0.0-5.0) % Baso % (Auto) (0.0-2.0) % Neut # (Auto) (1.40-7.00) K/uL Lymph # (Auto) (0.50-3.50) K/uL Banner # (Auto) (0.00-1.00) K/uL Eos # (Auto) (0.00-0.50) K/uL Baso # (Auto) (0.00-0.20) K/uL Sodium 126 L (136-145) mmol/L Potassium 4.3 (3.5-5.1) mmol/L Chloride 91 L (98-107) mmol/L Carbon Dioxide 23.5 (21.0-32.0) mmol/L BUN 10 (7-18) mg/dL Creatinine 0.87 (0.51-1.17) mg/dL Est Cr Clr Drug Dosing 47.50 mL/min Estimated GFR (MDRD) > 60 mL/min Glucose 198 H (70-99) mg/dL Lactic Acid 2.6 H (0.4-2.0) mmol/L Calcium 8.3 L (8.5-10.1) mg/dL Total Bilirubin 0.7 (0.2-1.0) mg/dL AST 42 H (15-37) U/L ALT 60 (12-78) U/L Alkaline Phosphatase 87 (46-116) IU/L Total Protein 7.1 (6.4-8.2) g/dL Albumin 3.4 (3.4-5.0) g/dL Specimen Type Urine Color Urine Appearance Urine pH (5.0-9.0) Ur Specific [place] (1.005-1.030) Urine Protein (NEGATIVE) mg/dL Urine Glucose (UA) (NEGATIVE) mg/dL Urine Ketones (NEGATIVE) mg/dL Urine Occult Blood (NEGATIVE) Urine Nitrite (NEGATIVE) Urine Bilirubin (NEGATIVE) Urine Urobilinogen (0.2-1.0) E.U./dL Ur Leukocyte Esterase (NEGATIVE) Urine RBC /HPF Urine WBC /HPF Ur Epithelial Cells /LPF Urine Bacteria (NONE TO FEW) /HPF SARS-CoV-2 RNA (RADHA) (NEGATIVE) - Re-Assessments/Exams Free Text/Narrative Re-Assessment/Exam: 05/15/20 16:13 Chest xray and urine unremarkable. WBC 15.6 Patient has history of hyponatremia and takes daily doses of sodium. Is at 126 today. Has been as low as 125 on previous visits. Lactic as 2.6 AST 42 Covid and influenza screens negative. Suspect developing viral syndrome based on patient's combination of symptoms/exam/evaluation. Will admit observation given the lower sodium and elevated lactic acid. Also, diastolic pressures noted to be in 40s/50s which is lower than usual per patient's report. Last time she checked her BP at home it was around 120/70. Departure - Departure Time of Disposition: 16:17 Disposition: Refer to Observation Clinical Impression: General ill feeling, Elevated lactic acid level, Hyponatremia - Discharge Information *PRESCRIPTION DRUG MONITORING PROGRAM REVIEWED*: Not Applicable *COPY OF PRESCRIPTION DRUG MONITORING REPORT IN PATIENT [place]: Not Applicable Sepsis Event Note (ED) - Evaluation Sepsis Screening Result: No Definite Risk - Focused Exam Vital Signs: Vital Signs Temp Pulse Resp BP Pulse Ox 05/15/20 14:07 37.1 C 67 18 108/63 96 - Problem List & Annotations (1) General ill feeling SNOMED Code(s): 785703829 Code(s): R68.89 - OTHER GENERAL SYMPTOMS AND SIGNS Status: Acute Priority: High Current Visit: Yes Onset Date: ~05/14/20 Annotation/Comment:: Symptoms suggestive of viral infection at this time. Admit observation/observe for additional changes. (2) Hyponatremia SNOMED Code(s): 72266635 Code(s): E87.1 - HYPO-OSMOLALITY AND HYPONATREMIA Status: Chronic Priority: Medium Current Visit: Yes Annotation/Comment:: Is a bit lower than usual for patient. 126 today. May be contributing to patient's feeling of being unwell today. Hypertonic saline ordered. (3) Elevated lactic acid level SNOMED Code(s): 4059570 Code(s): R79.89 - OTHER SPECIFIED ABNORMAL FINDINGS OF BLOOD CHEMISTRY Status: Acute Priority: High Current Visit: Yes Annotation/Comment:: Observe. No evidence of sepsis at this time. Normal chest xray/UA and patient afebrile. (4) CHF, Congestive heart failure SNOMED Code(s): 59055573 Code(s): I50.9 - HEART FAILURE, UNSPECIFIED Status: Chronic Priority: Medium Current Visit: No Annotation/Comment:: No chest pain or anginal type symptoms. No evidence of acute overload on exam/xray (5) Hypertension SNOMED Code(s): 42926141 Code(s): I10 - ESSENTIAL (PRIMARY) HYPERTENSION Status: Chronic Priority: Medium Current Visit: Yes Annotation/Comment:: Observe trends Qualifiers: Hypertension type: essential hypertension Qualified Code(s): I10 - Essential (primary) hypertension (6) Osteoarthritis SNOMED Code(s): 360336601 Code(s): M19.90 - UNSPECIFIED OSTEOARTHRITIS, UNSPECIFIED SITE Status: Chronic Priority: Medium Current Visit: No Annotation/Comment:: Stable by history Qualifiers: Osteoarthritis location: multiple joints Osteoarthritis type: primary (7) Vertigo SNOMED Code(s): 967424763 Code(s): R42 - DIZZINESS AND GIDDINESS Status: Chronic Priority: Low Current Visit: No Annotation/Comment:: Currently stable (8) Peptic reflux disease SNOMED Code(s): 991919331 Code(s): K21.9 - GASTRO-ESOPHAGEAL REFLUX DISEASE WITHOUT ESOPHAGITIS Status: Chronic Priority: Low Current Visit: No Annotation/Comment:: Stable by history (9) Hypothyroidism (acquired) SNOMED Code(s): 312127283 Code(s): E03.9 - HYPOTHYROIDISM, UNSPECIFIED Status: Chronic Priority: Lo w Current Visit: No Annotation/Comment:: Currently under therapy (10) Mixed anxiety depressive disorder SNOMED Code(s): 225652209 Code(s): F41.8 - OTHER SPECIFIED ANXIETY DISORDERS Status: Chronic Priority: Low Current Visit: No Annotation/Comment:: Relatively stable today. Continue to observe closely. (11) Hyperlipidemia SNOMED Code(s): 37354076 Code(s): E78.5 - HYPERLIPIDEMIA, UNSPECIFIED Status: Chronic Priority: Low Current Visit: No Annotation/Comment:: Currently under therapy Qualifiers: Hyperlipidemia type: unspecified Qualified Code(s): E78.5 - Hyperlipidemia, unspecified (12) Diabetes mellitus SNOMED Code(s): 83959480 Code(s): E11.9 - TYPE 2 DIABETES MELLITUS WITHOUT COMPLICATIONS Status: Chronic Priority: Low Current Visit: No Annotation/Comment:: Stable by history Qualifiers: Diabetes mellitus type: type 2 Diabetes mellitus filler leaf cutter long insulin use: without fpc use Diabetes mellitus complication status: without complication Qualified Code(s): E11.9 - Type 2 diabetes mellitus without complications - Problem List Review Problem List Initiated/Reviewed/Updated: Yes - My Orders Last 24 Hours: My Active Orders 05/15/20 14:24 CXR [Chest 2V] [CR] Stat 05/15/20 14:25 Isolation [COMM] Routine 05/15/20 14:47 Isolation [COMM] Routine - Assessment/Plan Admission H&P: Please use this note as an admission H&P Last 24 Hours: My Active Orders 05/15/20 14:24 CXR [Chest 2V] [CR] Stat 05/15/20 14:25 Isolation [COMM] Routine 05/15/20 14:47 Isolation [COMM] Routine Assessment:: as above. Stable and suitable for general supervision. Plan: Hypertonic saline to address hyponatremia. Cautious fluid support given patient's history of CHF. Observe for changes.
[2020-05-15] MEDS ORDERED: Acetaminophen 325 MG Tab PO PRN (16:24)
[2020-05-15] MEDS ORDERED: Sodium Chloride 0.9% 1,000 ML IV ONE (16:27)
[2020-05-15] MEDS ORDERED: Ondansetron 4 MG/2 ML SDV IVPUSH PRN (16:29)
[2020-05-15] MEDS ORDERED: Sodium Chloride 3% 500 ML IV SCH (16:30)
[2020-05-15] MEDS: Phenytoin 100 MG Cap.ER PO SCH (17:22)
[2020-05-15] MEDS ORDERED: LORazepam 0.5 MG Tab PO ONE (17:38)
[2020-05-15] MEDS ORDERED: Non-Formulary Medication 1 Each (Metformin Hcl [Metformin Hcl Er] 500 MG Tab.Sr.24h) PO SCH (18:00)
[2020-05-15] MEDS: Meclizine 25 MG Tab PO SCH (19:27)
[2020-05-15] MEDS: Sodium Chloride 1 GM Tab PO SCH (19:27)
[2020-05-15] MEDS ORDERED: atorvaSTATin 40 MG Tab PO SCH (20:00)
[2020-05-16] MEDS: Phenytoin 100 MG Cap.ER PO SCH ×2 (07:22→11:17)
[2020-05-16] MEDS: Meclizine 25 MG Tab PO SCH ×2 (07:22→13:29)
[2020-05-16] MEDS: Sodium Chloride 1 GM Tab PO SCH ×2 (07:23→11:16)
[2020-05-16] MEDS ORDERED: metFORMIN 500 MG Tab PO SCH (07:30)
[2020-05-16] MEDS ORDERED: Levothyroxine 150 MCG Tab PO SCH (07:30)
[2020-05-16] MEDS ORDERED: Aspirin 81 MG Tab.Chew PO SCH (08:00)
[2020-05-16] MEDS ORDERED: LORazepam 0.5 MG Tab PO SCH (08:00)
[2020-05-16] MEDS ORDERED: Pantoprazole 40 MG Vial IVPUSH SCH (08:00)
[2020-05-16 08:17] LABS: CHLORIDE,CL 101 mmol/L (98-107); SODIUM,NA 135 mmol/L (136-145)
[2020-05-16 11:18] VITALS: BP 140/57; PULSE 72
--- NOTE | 2020-05-16 15:15 | PCM.DCSUM1 ---
Discharge Summary - Hospital Course Brief History: Patient admitted for further evaluation and treatment of hyponatremia, elevated lactic acid, and suspected viral illness - Discharge Data Discharge Date: 05/16/20 Discharge Disposition: Home, Self-Care 01 Condition: Good - Referral to Home Health Primary Care Physician: PCP Unknown - Discharge Diagnosis/Problem(s) (1) General ill feeling SNOMED Code(s): 534395391 ICD Code: R68.89 - OTHER GENERAL SYMPTOMS AND SIGNS Status: Acute Priority: High Current Visit: Yes Onset Date: ~05/14/20 Problem Details: Symptom cluster suggestive of viral infection. May have component of symptomatic hyponatremia. Feeling much improved today after IV fluids. Nausea is gone. Loose stools improved. No fevers/chills. Still has some sinus congestion. Mild cough. WBC has improved and lactic normalized. (2) Hyponatremia SNOMED Code(s): 40963954 ICD Code: E87.1 - HYPO-OSMOLALITY AND HYPONATREMIA Status: Chronic Priority: Medium Current Visit: Yes Problem Details: Lower than usual for patient at 126. Improved to 135 today. Suspect it was a contributing factor to patient's feeling of being unwell yesterday. (3) Elevated lactic acid level SNOMED Code(s): 8680067 ICD Code: R79.89 - OTHER SPECIFIED ABNORMAL FINDINGS OF BLOOD CHEMISTRY Status: Acute Priority: High Current Visit: Yes Problem Details: Normalized overnight. (4) CHF, Congestive heart failure SNOMED Code(s): 70037270 ICD Code: I50.9 - HEART FAILURE, UNSPECIFIED Status: Chronic Priority: Medium Current Visit: No Problem Details: No chest pain or anginal type symptoms. No evidence of acute overload on exam/xray (5) Hypertension SNOMED Code(s): 63973687 ICD Code: I10 - ESSENTIAL (PRIMARY) HYPERTENSION Status: Chronic Priority: Medium Current Visit: Yes Problem Details: Observe trends Qualifiers: Hypertension type: essential hypertension Qualified Code(s): I10 - Essential (primary) hypertension (6) Osteoarthritis SNOMED Code(s): 352176412 ICD Code: M19.90 - UNSPECIFIED OSTEOARTHRITIS, UNSPECIFIED SITE Status: Chronic Priority: Medium Current Visit: No Problem Details: Stable by history Qualifiers: Osteoarthritis location: multiple joints Osteoarthritis type: primary Qualified Code(s): M89.49 - Other hypertrophic osteoarthropathy, multiple sites (7) Vertigo SNOMED Code(s): 881646588 ICD Code: R42 - DIZZINESS AND GIDDINESS Status: Chronic Priority: Low Current Visit: No Problem Details: Currently stable (8) Peptic reflux disease SNOMED Code(s): 770429570 ICD Code: K21.9 - GASTRO-ESOPHAGEAL REFLUX DISEASE WITHOUT ESOPHAGITIS Status: Chronic Priority: Low Current Visit: No Problem Details: Stable by history (9) Hypothyroidism (acquired) SNOMED Code(s): 645854347 ICD Code: E03.9 - HYPOTHYROIDISM, UNSPECIFIED Status: Chronic Priority: Low Current Visit: No Problem Details: Currently under therapy (10) Mixed anxiety depressive disorder SNOMED Code(s): 499048040 ICD Code: F41.8 - OTHER SPECIFIED ANXIETY DISORDERS Status: Chronic Priority: Low Current Visit: No Problem Details: Relatively stable today. Continue to observe closely. 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 Feels much improved today. No further chills. Nausea and headache resolved. Loose stools and body aches improving. Still has sinus congestion/fulness as noted above. Lactic acid normalized. WBC dropped from 15.6 to 11 today. Plan at this time is to discharge patient home. Precautions reviewed. Follow up for lab recheck Saturday recommended. Follow up otherwise as needed for developing problems/concerns. - Patient Instructions Diet: Usual Diet as Tolerated Fluid Restriction: 1500 mL Activity: As Tolerated Notify Provider of: Fever, Increased Pain, Nausea and/or Vomiting Other/Special Instructions: See how you feel over the next few days. Follow up as needed if you have sudden problems/new symptoms. Recommend recheck of Na level on Saturday. Also keep track of your blood pressure/write it down three times a day and review with your regular provider next visit to make sure that you continue to stay within good ranges. - Discharge Plan *PRESCRIPTION DRUG MONITORING PROGRAM REVIEWED*: Not Applicable *COPY OF PRESCRIPTION DRUG MONITORING REPORT IN PATIENT [place]: Not Applicable Home Medications: Home Meds Aspirin 81 mg PO DAILY 05/13/16 [History] LORazepam 0.5 mg PO BID@08,16 05/13/16 [History] Levothyroxine 150 mcg PO ACBREAKFAST 05/13/16 [History] Meclizine [Antivert] 25 mg PO TID@08,14,20 05/13/16 [History] Metoprolol Succinate 25 mg PO DAILY 05/13/16 [History] Phenytoin 100 mg PO TID 05/13/16 [History] amLODIPine Besylate [Amlodipine Besylate] 5 mg PO DAILY 05/13/16 [History] atorvaSTATin [Lipitor] 40 mg PO BEDTIME 05/13/16 [History] metFORMIN HCl [Metformin HCl ER] 500 mg PO QPM 05/13/16 [History] Vitamin B Complex 1 tab PO DAILY 05/23/16 [History] Sodium Chloride 1 gm PO QID 06/05/16 [History] Calcium Carbonate/Vitamin D3 [Calcium 500 + Vit D 400] 1 each PO DAILY 03/24/19 [History] Famotidine 20 mg PO BEDTIME 03/24/19 [History] Forms: ED Department Discharge Referrals: PCP,Unknown [Primary Care Provider] - - Discharge Summary/Plan Comment DC Time >30 min.: No - General Info Date of Service: 05/16/20 Admission Dx/Problem (Free Text: Generalized ill feeling/viral type symptoms. Hyponatremia. Elevated lactic acid. Subjective Update: Patient feels mostly back to baseline. Still has some sinus fullness. Shakiness has improved. Functional Status: Reports: Pain Controlled, Tolerating Diet, Ambulating, Urinating. Denies: New Symptoms Numeric/FACES Score: 0 - Review of Systems General: Denies: Fever, Weakness, Malaise, Chills, Night Sweats HEENT: Reports: Glasses, Sinus Congestion. Denies: Ear Pain, Eye Pain, Headaches, Sore Throat, Rhinitis, Visual Changes Pulmonary: Reports: Cough. Denies: Shortness of Breath, Pleuritic Chest Pain, Sputum, Hemoptysis, Wheezing Cardiovascular: Reports: Lightheadedness (chronic dizziness/vertigo. baseline. ). Denies: Chest Pain, Palpitations, Dyspnea on Exertion, Orthopnea, Edema Gastrointestinal: Reports: Other (single mildly loose stool eariler today). Denies: Abdominal Pain, Decreased Appetite, Diarrhea, Hematochezia, Nausea, Vomiting Genitourinary: Reports: No Symptoms Musculoskeletal: Reports: Other (did have generalized body aches yesterday. Improved today) Skin: Reports: No Symptoms Neurological: Reports: Dizziness (chronic), Tremors (chronic. Exacerbation noted yesterday has improved. ), Other (is using walker to assist with ambulation). Denies: Confusion, Headache, Syncope, Trouble Speaking, Weakness, Change in Speech Psychiatric: Reports: No Symptoms - Patient Data Vitals - Most Recent: Last Vital Signs Temp 36.4 C 05/16/20 11:17 Pulse 72 05/16/20 11:17 Resp 16 05/16/20 11:17 BP 140/57 L 05/16/20 11:17 Pulse Ox 95 05/16/20 11:17 Orthostatic Blood Pressure [ 140/48 Standing] Orthostatic Blood Pressure [ 136/42 Sitting] Orthostatic Blood Pressure [ 120/43 Supine] Weight - Most Recent: 77.927 kg I&O - Last 24 hours: Intake & Output 05/16/20 05/16/20 05/16/20 06:59 14:59 22:59 Intake Total 1503 480 Output Total 1000 100 Balance 503 380 Lab Results - Last 24 hrs: Laboratory Results - last 24 hr 05/15/20 05/15/20 05/15/20 Range/Units 14:35 14:48 14:48 WBC (4.0-10.2) K/uL RBC (3.77-5.09) M/uL Hgb (11.7-15.5) g/dL Hct (34.0-46.0) % MCV (84.0-98.0) fL MCH (28.2-33.3) pg MCHC (31.7-36.0) g/dL RDW (11.2-14.1) % Plt Count (150-350) K/uL Neut % (Auto) (45.0-80.0) % Lymph % (Auto) (10.0-50.0) % [place] % (Auto) (2.0-14.0) % Eos % (Auto) (0.0-5.0) % Baso % (Auto) (0.0-2.0) % Neut # (Auto) (1.40-7.00) K/uL Lymph # (Auto) (0.50-3.50) K/uL [place] # (Auto) (0.00-1.00) K/uL Eos # (Auto) (0.00-0.50) K/uL Baso # (Auto) (0.00-0.20) K/uL Sodium 126 L (136-145) mmol/L Potassium 4.3 (3.5-5.1) mmol/L Chloride 91 L (98-107) mmol/L Carbon Dioxide 23.5 (21.0-32.0) mmol/L BUN 10 (7-18) mg/dL Creatinine 0.87 (0.51-1.17) mg/dL Est Cr Clr Drug Dosing 47.50 mL/min Estimated GFR (MDRD) > 60 mL/min Glucose 198 H (70-99) mg/dL POC Glucose (65-110) mg/dl Lactic Acid 2.6 H (0.4-2.0) mmol/L Calcium 8.3 L (8.5-10.1) mg/dL Magnesium (1.8-2.4) mg/dL Total Bilirubin 0.7 (0.2-1.0) mg/dL AST 42 H (15-37) U/L ALT 60 (12-78) U/L Alkaline Phosphatase 87 (46-116) IU/L Total Protein 7.1 (6.4-8.2) g/dL Albumin 3.4 (3.4-5.0) g/dL SARS-CoV-2 RNA (RADHA) Negative (NEGATIVE) 05/16/20 05/16/20 05/16/20 Range/Units 07:21 07:25 07:25 WBC (4.0-10.2) K/uL RBC (3.77-5.09) M/uL Hgb (11.7-15.5) g/dL Hct (34.0-46.0) % MCV (84.0-98.0) fL MCH (28.2-33.3) pg MCHC (31.7-36.0) g/dL RDW (11.2-14.1) % Plt Count (150-350) K/uL Neut % (Auto) (45.0-80.0) % Lymph % (Auto) (10.0-50.0) % [place] % (Auto) (2.0-14.0) % Eos % (Auto) (0.0-5.0) % Baso % (Auto) (0.0-2.0) % Neut # (Auto) (1.40-7.00) K/uL Lymph # (Auto) (0.50-3.50) K/uL [place] # (Auto) (0.00-1.00) K/uL Eos # (Auto) (0.00-0.50) K/uL Baso # (Auto) (0.00-0.20) K/uL Sodium 135 L (136-145) mmol/L Potassium 4.0 (3.5-5.1) mmol/L Chloride 101 (98-107) mmol/L Carbon Dioxide 24.6 (21.0-32.0) mmol/L BUN 9 (7-18) mg/dL Creatinine 0.77 (0.51-1.17) mg/dL Est Cr Clr Drug Dosing 53.67 mL/min Estimated GFR (MDRD) > 60 mL/min Glucose 127 H (70-99) mg/dL POC Glucose 121 H (65-110) mg/dl Lactic Acid 0.7 (0.4-2.0) mmol/L Calcium 8.1 L (8.5-10.1) mg/dL Magnesium 1.9 (1.8-2.4) mg/dL Total Bilirubin 0.5 (0.2-1.0) mg/dL AST 37 (15-37) U/L ALT 54 (12-78) U/L Alkaline Phosphatase 62 (46-116) IU/L Total Protein 6.1 L (6.4-8.2) g/dL Albumin 2.8 L (3.4-5.0) g/dL SARS-CoV-2 RNA (RADHA) (NEGATIVE) 04/05/21 Range/Units 07:25 WBC 11.0 H (4.0-10.2) K/uL RBC 3.68 L (3.77-5.09) M/uL Hgb 11.8 (11.7-15.5) g/dL Hct 33.6 L (34.0-46.0) % MCV 91.3 (84.0-98.0) fL MCH 32.1 (28.2-33.3) pg MCHC 35.1 (31.7-36.0) g/dL RDW 12.4 (11.2-14.1) % Plt Count 137 L (150-350) K/uL Neut % (Auto) 71.3 (45.0-80.0) % Lymph % (Auto) 13.6 (10.0-50.0) % [place] % (Auto) 14.3 H (2.0-14.0) % Eos % (Auto) 0.5 (0.0-5.0) % Baso % (Auto) 0.3 (0.0-2.0) % Neut # (Auto) 7.84 H (1.40-7.00) K/uL Lymph # (Auto) 1.49 (0.50-3.50) K/uL [place] # (Auto) 1.57 H (0.00-1.00) K/uL Eos # (Auto) 0.05 (0.00-0.50) K/uL Baso # (Auto) 0.03 (0.00-0.20) K/uL Sodium (136-145) mmol/L Potassium (3.5-5.1) mmol/L Chloride (98-107) mmol/L Carbon Dioxide (21.0-32.0) mmol/L BUN (7-18) mg/dL Creatinine (0.51-1.17) mg/dL Est Cr Clr Drug Dosing mL/min Estimated GFR (MDRD) mL/min Glucose (70-99) mg/dL POC Glucose (65-110) mg/dl Lactic Acid (0.4-2.0) mmol/L Calcium (8.5-10.1) mg/dL Magnesium (1.8-2.4) mg/dL Total Bilirubin (0.2-1.0) mg/dL AST (15-37) U/L ALT (12-78) U/L Alkaline Phosphatase (46-116) IU/L Total Protein (6.4-8.2) g/dL Albumin (3.4-5.0) g/dL SARS-CoV-2 RNA (RADHA) (NEGATIVE) [facility]AYLA Results - Last 24 hrs: Microbiology 05/15/20 14:47 Influenza Type A Antigen Screen - Final Nasal, Left NEGATIVE INFLUENZA A VIRUS AG REFERENCE RANGE: NEGATIVE Influenza Type B Antigen Screen - Final NEGATIVE INFLUENZA B VIRUS AG REFERENCE RANGE: NEGATIVE Med Orders - Current: Current Medications Acetaminophen (Acetaminophen 325 Mg Tab) 650 mg PO Q4H PRN PRN Reason: analgesia/fever Aspirin (Aspirin 81 Mg Tab.Chew) 81 mg PO DAILY [facility] Last Admin: 05/16/20 07:22 Dose: 81 mg Documented by: Atorvastatin Calcium (Atorvastatin 40 Mg Tab) 40 mg PO BEDTIME [facility] Last Admin: 05/15/20 19:27 Dose: 40 mg Documented by: Sodium Chloride (Sodium Chloride 3%) 500 mls @ 20 mls/hr IV ASDIRECTED [facility] Last Admin: 05/15/20 17:21 Dose: 20 mls/hr Documented by: Levothyroxine Sodium (Levothyroxine 150 Mcg Tab) 150 mcg PO ACBREAKFAST [facility] Last Admin: 05/16/20 07:23 Dose: 150 mcg Documented by: Lorazepam (Lorazepam 0.5 Mg Tab) 0.5 mg PO BID@08,16 [facility] Last Admin: 05/16/20 07:24 Dose: 0.5 mg Documented by: Meclizine HCl (Meclizine 25 Mg Tab) 25 mg PO TID@08,14,20 [facility] Last Admin: 05/16/20 13:29 Dose: 25 mg Documented by: Metformin HCl (Metformin 500 Mg Tab) 250 mg PO BIDMEALS [facility] Last Admin: 05/16/20 07:24 Dose: 250 mg Documented by: Ondansetron HCl (Ondansetron 4 Mg/2 Ml Sdv) 4 mg IVPUSH Q6H PRN PRN Reason: Nausea/Vomiting Pantoprazole Sodium (Pantoprazole 40 Mg Vial) 40 mg IVPUSH DAILY [facility] Last Admin: 05/16/20 07:25 Dose: 40 mg Documented by: Phenytoin Sodium (Phenytoin 100 Mg Cap.Er) 100 mg PO TID [facility] Last Admin: 05/16/20 11:17 Dose: 100 mg Documented by: Sodium Chloride (Sodium Chloride 1 Gm Tab) 1 gm PO QID [facility] Last Admin: 05/16/20 11:16 Dose: 1 gm Documented by: Discontinued Medications Sodium Chloride (Normal Saline) 1,000 mls @ 60 mls/hr IV .BOLUS ONE Stop: 05/16/20 09:06 Last Admin: 05/15/20 16:00 Dose: 60 mls/hr Documented by: Lorazepam (Lorazepam 0.5 Mg Tab) 0.5 mg PO ONETIME ONE Stop: 05/15/20 17:39 Last Admin: 05/15/20 18:04 Dose: 0.5 mg Documented by: Non-Formulary Medication (Metformin Hcl [Metformin Hcl Er]) 500 mg PO QPM [facility] Last Admin: 05/15/20 23:25 Dose: Not Given Documented by: - Exam General: Reports: Alert, Oriented, Cooperative, No Acute Distress HEENT: Reports: Pupils Equal, Pupils Reactive, EOMI, Mucous Membr. Moist/[place] Neck: Reports: Supple Lungs: Reports: Clear to Auscultation, Normal Respiratory Effort Cardiovascular: Reports: Regular Rate, Regular Rhythm GI/Abdominal Exam: Normal Bowel Sounds, Soft, Non-Tender, No Distention (Female) Exam: Deferred Rectal (Female) Exam: Deferred Back Exam: Denies: CVA Tenderness (L), CVA Tenderness (R), Muscle Spasm Extremities: Non-Tender, No Pedal Edema, Normal Capillary Refill Skin: Reports: Warm Neurological: Reports: No New Focal Deficit Psy/Mental Status: Reports: Alert, Normal Affect, Normal Mood
== END 2020-05-16 13:50 | disposition home or self-care (01) ==
LOC: LL.ED 14:05 → LL.MS 15:45
PROVIDERS: ADMIT Emergency Medicine; ATTEND Emergency Medicine
DX: R68.89 Other general symptoms and signs (principal); R25.1 Tremor, unspecified; I48.91 Unspecified atrial fibrillation; I11.0 Hypertensive heart disease with heart failure; E78.00 Pure hypercholesterolemia, unspecified; I50.9 Heart failure, unspecified; E11.9 Type 2 diabetes mellitus without complications; E03.9 Hypothyroidism, unspecified; E66.9 Obesity, unspecified; E87.1 Hypo-osmolality and hyponatremia; R79.89 Other specified abnormal findings of blood chemistry; F41.8 Other specified anxiety disorders; Z20.822 Contact with and (suspected) exposure to COVID-19; Z88.5 Allergy status to narcotic agent; Z88.8 Allergy status to other drugs, medicaments and biological substances; Z79.82 Long term (current) use of aspirin; Z79.899 Other long term (current) drug therapy; Z79.84 Long term (current) use of oral hypoglycemic drugs; Z79.890 Hormone replacement therapy; Z98.890 Other specified postprocedural states; Z87.891 Personal history of nicotine dependence
CPT/HCPCS: 36415; 71046; 80053; 81001; 82962; 83605; 83735; 85025; 87804; A9270; C9113; J7030; J7131; U0002; 96374; 99217; 99219; 99285-25; G0378

== ENCOUNTER 2021-04-09 08:18 | Observation (INO) | payer MEDICARE, MEDICAID ==
[2021-04-09] MEDS ORDERED: Sodium Chloride 0.9% 10 ML Syringe FLUSH PRN (08:26)
[2021-04-09] MEDS ORDERED: Lactated Ringers 1,000 ML IV ONE (08:26)
[2021-04-09 09:37] LABS: CHLORIDE,CL 93 mmol/L (98-107); SODIUM,NA 128 mmol/L (136-145)
[2021-04-09 10:32] LABS: ANION GAP 13.3 meq/L (7-15)
[2021-04-09] MEDS ORDERED: Polyethylene Glycol 3350 Powder 17 GM Packet PO PRN (15:20)
[2021-04-09] MEDS ORDERED: Acetaminophen 325 MG Tab PO PRN (15:20)
[2021-04-09] MEDS ORDERED: Ondansetron 4 MG Tab.DIS PO PRN (15:20)
[2021-04-09] MEDS: Sodium Chloride 1 GM Tab PO SCH ×2 (16:07→20:24)
[2021-04-09] MEDS: LORazepam 0.5 MG Tab PO SCH (16:07)
[2021-04-09] MEDS: Phenytoin 100 MG Cap.ER PO SCH (18:37)
[2021-04-09] MEDS ORDERED: atorvaSTATin 40 MG Tab PO SCH (20:00)
[2021-04-09] MEDS: Meclizine 25 MG Tab PO SCH (20:25)
[2021-04-10] MEDS: LORazepam 0.5 MG Tab PO SCH (07:21)
[2021-04-10] MEDS: Phenytoin 100 MG Cap.ER PO SCH ×2 (07:21→11:51)
[2021-04-10] MEDS: Meclizine 25 MG Tab PO SCH (07:22)
[2021-04-10] MEDS: Sodium Chloride 1 GM Tab PO SCH ×2 (07:23→11:51)
[2021-04-10] MEDS ORDERED: Levothyroxine 150 MCG Tab PO SCH (07:30)
[2021-04-10] MEDS ORDERED: amLODIPine 5 MG Tab PO SCH (08:00)
[2021-04-10] MEDS ORDERED: Aspirin 81 MG Tab.Chew PO SCH (08:00)
[2021-04-10] MEDS ORDERED: Metoprolol Succinate 25 MG Tab.ER PO SCH (08:00)
[2021-04-10] MEDS ORDERED: Calcium Carbonate/Vitamin D3 625 MG-125 Unit Tab PO SCH (08:00)
[2021-04-10] MEDS ORDERED: Enoxaparin 40 MG/0.4 ML Syringe SUBCUT SCH (08:00)
[2021-04-10] MEDS ORDERED: Vitamin B Complex Tab PO SCH (08:00)
[2021-04-10 09:44] VITALS: PULSE 73
[2021-04-10 09:46] VITALS: BP 144/67
[2021-04-10 10:36] LABS: ANION GAP 11.8 meq/L (7-15)
== END 2021-04-10 13:05 | disposition home or self-care (01) ==
LOC: LL.ED 08:18 → LL.MS 14:25
PROVIDERS: ADMIT Hospitalist; ATTEND Hospitalist
DX: E87.1 Hypo-osmolality and hyponatremia (principal); E11.51 Type 2 diabetes mellitus with diabetic peripheral angiopathy without gangrene; E11.65 Type 2 diabetes mellitus with hyperglycemia; I11.0 Hypertensive heart disease with heart failure; I50.9 Heart failure, unspecified; K21.9 Gastro-esophageal reflux disease without esophagitis; F41.8 Other specified anxiety disorders; E03.9 Hypothyroidism, unspecified; E78.2 Mixed hyperlipidemia; M13.89 Other specified arthritis, multiple sites; I48.91 Unspecified atrial fibrillation; E78.00 Pure hypercholesterolemia, unspecified; E66.9 Obesity, unspecified; Z68.30 Body mass index [BMI] 30.0-30.9, adult; Z66 Do not resuscitate; Z79.82 Long term (current) use of aspirin; Z79.890 Hormone replacement therapy; Z79.84 Long term (current) use of oral hypoglycemic drugs; Z79.899 Other long term (current) drug therapy; Z88.8 Allergy status to other drugs, medicaments and biological substances; Z88.5 Allergy status to narcotic agent; Z90.49 Acquired absence of other specified parts of digestive tract; Z98.890 Other specified postprocedural states
CPT/HCPCS: 36415; 80048; 80053; 81001; 83735; 83880; 84295; 85025; 85027; 86140; 96372; 97161-GP; 99217; 99220; 99285; A9270-GY; G0378; J1650; J7120